=== PATIENT | female | born 1990 | race Caucasian/White ===

== ENCOUNTER 2018-09-03 15:32 | Inpatient (IN) | payer BC ==
[2018-09-03] MEDS ORDERED: Lidocaine 1% 50 ML MDV INJECT PRN (17:27)
[2018-09-03] MEDS ORDERED: Terbutaline 1 MG/ML SDV SUBCUT PRN (17:27)
[2018-09-03] MEDS ORDERED: Misoprostol 25 MCG (1/4 of 100 MCG) Tab VAG PRN (17:27)
[2018-09-03] MEDS ORDERED: Tranexamic Acid 1,000 MG in Sodium Chloride 0.9% 100 ML IV PRN (17:27)
[2018-09-03] MEDS ORDERED: Sodium Chloride 0.9% 10 ML Syringe FLUSH PRN (17:27)
[2018-09-03] MEDS ORDERED: Nalbuphine 10 MG/1 ML Vial IVPUSH PRN (17:27)
[2018-09-03] MEDS ORDERED: Methylergonovine 0.2 MG/1 ML Amp IM PRN (17:27)
[2018-09-03] MEDS ORDERED: Misoprostol 200 MCG Tab PO PRN (17:27)
[2018-09-03] MEDS ORDERED: Carboprost Tromethamine 250 MCG/1 ML Amp IM PRN (17:27)
[2018-09-03] MEDS ORDERED: Water For Irrigation,Sterile 1,000 ML Container IRR PRN (17:27)
[2018-09-03] MEDS ORDERED: Oxytocin/0.9 % Sodium Chloride 30 UNIT/500 ML BAG IV SCH (17:30)
[2018-09-03 18:42] LABS: CHLORIDE,CL 106 mmol/L (98-107); SODIUM,NA 138 mmol/L (136-145)
[2018-09-03] MEDS ORDERED: Labetalol 100 MG Tab PO ONE (20:06)
[2018-09-03] MEDS ORDERED: Labetalol 100 MG Tab PO PRN (20:06)
[2018-09-03] MEDS: Misoprostol 25 MCG (1/4 of 100 MCG) Tab VAG PRN (21:50)
[2018-09-04] MEDS: Misoprostol 25 MCG (1/4 of 100 MCG) Tab VAG PRN ×2 (01:51→06:13)
[2018-09-04] MEDS: Oxytocin/0.9 % Sodium Chloride 30 UNIT/500 ML BAG IV SCH (10:53)
[2018-09-04] MEDS: Lactated Ringers 1,000 ML IV SCH ×2 (10:53→18:09)
[2018-09-04] MEDS ORDERED: Labetalol 100 MG Tab PO SCH (21:00)
[2018-09-04] MEDS: Butorphanol 1 MG/ML SDV IVPUSH PRN (23:14)
[2018-09-05] MEDS: Butorphanol 1 MG/ML SDV IVPUSH PRN (00:43)
--- NOTE | 2018-09-05 03:01 | PCM.PREANE ---
Preanesthetic Assessment - Anesthesia/Transfusion/Family Hx Anesthesia History: Prior Anesthesia Without Reaction Family History of Anesthesia Reaction: No Transfusion History: No Prior Transfusion(s) - Review of Systems General: No Symptoms Pulmonary: No Symptoms Cardiovascular: No Symptoms Gastrointestinal: No Symptoms Neurological: No Symptoms Other: Reports: None - Physical Assessment Pulse: 80 Blood Pressure: 144/92 Vital Signs: Last Vital Signs Temp Pulse 80 09/04/18 22:51 Resp BP 144/92 H 09/04/18 22:51 Pulse Ox Height: 5 ft 6 in Weight: 92.986 kg ASA Class: 2 Mental Status: Alert & Oriented x3 Airway Class: Mallampati = 2 Dentition: Reports: Normal Dentition Thyro-Mental Finger Breadths: 3 Mouth Opening Finger Breadths: 3 ROM/Head Extension: Full Lungs: Clear to Auscultation, Normal Respiratory Effort Cardiovascular: Regular Rate, Regular Rhythm - Lab Values: Laboratory Last Values WBC 13.38 K/uL (4.0-11.0) H 09/03/18 17:41 RBC 3.64 M/uL (4.30-5.90) L 09/03/18 17:41 Hgb 11.4 g/dL (12.0-16.0) L 09/03/18 17:41 Hct 33.6 % (36.0-46.0) L 09/03/18 17:41 MCV 92.3 fL (80.0-98.0) 09/03/18 17:41 MCH 31.3 pg (27.0-32.0) 09/03/18 17:41 MCHC 33.9 g/dL (31.0-37.0) 09/03/18 17:41 RDW Std Deviation 47.6 fl (28.0-62.0) 09/03/18 17:41 RDW Coeff of Galilea 14 % (11.0-15.0) 09/03/18 17:41 Plt Count 184 K/uL (150-400) 09/03/18 17:41 MPV 9.60 fL (7.40-12.00) 09/03/18 17:41 Nucleated RBC % 0.0 /100WBC 09/03/18 17:41 Nucleated RBCs # 0 K/uL 09/03/18 17:41 Sodium 138 mmol/L (136-145) 09/03/18 17:41 Potassium 3.6 mmol/L (3.5-5.1) 09/03/18 17:41 Chloride 106 mmol/L (98-107) 09/03/18 17:41 Carbon Dioxide 20.8 mmol/L (21.0-32.0) L 09/03/18 17:41 BUN 8 mg/dL (7.0-18.0) 09/03/18 17:41 Creatinine 0.6 mg/dL (0.6-1.0) 09/03/18 17:41 Est Cr Clr Drug Dosing 133.01 mL/min 09/03/18 17:41 Estimated GFR (MDRD) > 60.0 ml/min 09/03/18 17:41 Glucose 94 mg/dL (74-106) 09/03/18 17:41 Uric Acid 3.3 mg/dL (2.6-7.2) 09/03/18 17:41 Calcium 8.9 mg/dL (8.5-10.1) 09/03/18 17:41 Total Bilirubin 0.2 mg/dL (0.2-1.0) 09/03/18 17:41 AST 19 IU/L (15-37) 09/03/18 17:41 ALT 11 IU/L (14-63) L 09/03/18 17:41 Alkaline Phosphatase 148 U/L (46-116) H 09/03/18 17:41 Total Protein 6.2 g/dL (6.4-8.2) L 09/03/18 17:41 Albumin 2.6 g/dL (3.4-5.0) L 09/03/18 17:41 Globulin 3.6 g/dL (2.6-4.0) 09/03/18 17:41 Albumin/Globulin Ratio 0.7 (0.9-1.6) L 09/03/18 17:41 Urine Color YELLOW 09/03/18 19:50 Urine Appearance CLEAR 09/03/18 19:50 Urine pH 7.0 (5.0-8.0) 09/03/18 19:50 Ur Specific [place] 1.010 (1.001-1.035) 09/03/18 19:50 Urine Protein NEGATIVE mg/dL (NEGATIVE) 09/03/18 19:50 Urine Glucose (UA) NEGATIVE mg/dL (NEGATIVE) 09/03/18 19:50 Urine Ketones NEGATIVE mg/dL (NEGATIVE) 09/03/18 19:50 Urine Occult Blood NEGATIVE (NEGATIVE) 09/03/18 19:50 Urine Nitrite NEGATIVE (NEGATIVE) 09/03/18 19:50 Urine Bilirubin NEGATIVE (NEGATIVE) 09/03/18 19:50 Urine Urobilinogen 0.2 EU/dL (<2.0) 09/03/18 19:50 Ur Leukocyte Esterase NEGATIVE (NEGATIVE) 09/03/18 19:50 Blood Type O POSITIVE 09/03/18 17:41 Antibody Screen NEGATIVE 09/03/18 17:41 - Allergies Allergies/Adverse Reactions: Allergies Allergy/AdvReac Type Severity Reaction Status Date / Time amoxicillin Allergy Hives Verified 09/03/18 17:25 Penicillins Allergy Hives Verified 09/03/18 17:25 - Acknowledgements Anesthesia Type Planned: Epidural Pt an Appropriate Candidate for the Planned Anesthesia: Yes Alternatives and Risks of Anesthesia Discussed w Pt/Guardian: Yes Pt/Guardian Understands and Agrees with Anesthesia Plan: Yes PreAnesthesia Questionnaire HEENT History: Reports: None Cardiovascular History: Reports: None Respiratory History: Reports: None Gastrointestinal History: Reports: GERD Genitourinary History: Reports: None 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 Para: 0 LMP (Approximate): Musculoskeletal History: Reports: None Neurological History: Reports: None Psychiatric History: Reports: None Endocrine/Metabolic History: Reports: Obesity/BMI 30+ Hematologic History: Reports: None Immunologic History: Reports: None Oncologic (Cancer) History: Reports: None Dermatologic History: Reports: None - Infectious Disease History Infectious Disease History: Reports: None - Past Surgical History HEENT Surgical History: Reports: Other (See Below) Other HEENT Surgeries/Procedures: wisdom teeth - SUBSTANCE USE Smoking Status *Q: Never Smoker Tobacco Use Within Last Twelve Months: No Second Hand Smoke Exposure: No Recreational Drug Use History: No - CURRENT (IN HOUSE) MEDS Current Meds: Current Medications Butorphanol Tartrate (Stadol) 1 mg IVPUSH ASDIRECTED PRN PRN Reason: Pain Last Admin: 09/05/18 00:43 Dose: 1 mg Carboprost Tromethamine (Hemabate Ds) 250 mcg IM ASDIRECTED PRN PRN Reason: Post Hemorrhage Lactated Ringer's (Ringers, Lactated) 1,000 mls @ 150 mls/hr IV ASDIRECTED VIVEK Last Admin: 09/04/18 18:09 Dose: 150 mls/hr Oxytocin/Sodium Chloride (Oxytocin 30 Unit/500 Ml-Ns) 30 unit in 500 mls @ 999 mls/hr IV TITRATE VIVEK Oxytocin/Sodium Chloride (Oxytocin 30 Unit/500 Ml-Ns) 30 unit in 500 mls @ 2 mls/hr IV TITRATE VIVEK; Protocol Last Titration: 09/05/18 01:15 Dose: 30 munits/min, 30 mls/hr Tranexamic Acid 1,000 mg/ (Sodium Chloride) 110 mls @ 660 mls/hr IV ONETIME PRN PRN Reason: Bleeding Labetalol HCl (Normodyne) 200 mg PO BID [facility] Last Admin: 09/04/18 22:51 Dose: 200 mg Lidocaine HCl (Xylocaine 1%) 50 ml INJECT ONETIME PRN PRN Reason: Laceration repair Methylergonovine Maleate (Methergine) 0.2 mg IM ASDIRECTED PRN PRN Reason: Post Hemorrhage Misoprostol (Cytotec) 200 mcg PO ONETIME PRN PRN Reason: Post Hemorrhage Misoprostol (Cytotec) 25 mcg VAG ONETIME PRN PRN Reason: Cervical Ripening Last Admin: 09/03/18 17:52 Dose: 25 mcg Misoprostol (Cytotec) 25 mcg VAG Q4H PRN PRN Reason: Cervical Ripening Last Admin: 09/04/18 06:13 Dose: 25 mcg Nalbuphine HCl (Nubain) 10 mg IVPUSH ASDIRECTED PRN PRN Reason: Pain (severe 7-10) Sodium Chloride (Saline Flush) 10 ml FLUSH ASDIRECTED PRN PRN Reason: Keep Vein Open Last Admin: 09/03/18 17:41 Dose: 10 ml Sterile Water (Sterile Water For Irrigation) 1,000 ml IRR ASDIRECTED PRN PRN Reason: delivery Terbutaline Sulfate (Brethine) 0.25 mg SUBCUT ASDIRECTED PRN PRN Reason: Tacysystole Discontinued Medications Labetalol HCl (Normodyne) 200 mg PO ONETIME ONE Stop: 09/03/18 20:07 Last Admin: 09/03/18 20:21 Dose: 200 mg Labetalol HCl (Normodyne) 200 mg PO Q6H PRN PRN Reason: Other Last Admin: 09/04/18 10:24 Dose: 200 mg
[2018-09-05] MEDS ORDERED: Lidocaine HCl/EPINEPHrine 5 ML IJ ONE (03:06)
[2018-09-05] MEDS ORDERED: Labetalol 100 MG Tab ONE (11:15)
[2018-09-05] MEDS: Labetalol 100 MG Tab PO SCH ×2 (11:19→22:35)
[2018-09-05] MEDS: Oxytocin/0.9 % Sodium Chloride 30 UNIT/500 ML BAG IV SCH (11:20)
[2018-09-05] MEDS ORDERED: Ondansetron 4 MG/2 ML SDV IVPUSH PRN (12:09)
[2018-09-05] MEDS: Lactated Ringers 1,000 ML IV SCH (13:26)
[2018-09-05] MEDS ORDERED: Aluminum Hydroxide/Magnesium Hydroxide/Simethicone Susp 30 ML Cup PO PRN (16:17)
[2018-09-05] MEDS ORDERED: Bisacodyl 10 MG Supp RECTAL PRN (16:17)
[2018-09-05] MEDS ORDERED: Benzocaine/Menthol 20%-0.5% Spray 78 GM Cannister TOP PRN (16:17)
[2018-09-05] MEDS ORDERED: Lanolin 100% Cream 7 GM Tube TOP PRN (16:17)
[2018-09-05] MEDS ORDERED: oxyCODONE 5 MG Tab PO PRN (16:17)
[2018-09-05] MEDS ORDERED: Docusate Sodium 100 MG Cap PO PRN (16:17)
[2018-09-05] MEDS ORDERED: Ibuprofen 400 MG Tab PO PRN (16:17)
[2018-09-05] MEDS ORDERED: Acetaminophen 500 MG Tab PO PRN (16:17)
[2018-09-05] MEDS ORDERED: Sodium Chloride 0.9% 100 ML ONE (17:01)
[2018-09-05] MEDS: Acetaminophen 500 MG Tab PO PRN (18:16)
[2018-09-05] MEDS: Witch Hazel Medicated Pads 40/Jar TOP PRN (18:19)
--- NOTE | 2018-09-05 19:50 | OR ---
SURGEON: Judi Sweet M.D. DATE OF PROCEDURE: 09/05/2018 PREOPERATIVE DIAGNOSES: 1. 39 and 4 weeks intrauterine . 2. Gestational hypertension. POSTOPERATIVE DIAGNOSES: 1. 39 and 4 weeks intrauterine . 2. Gestational hypertension. 3. Uterine atony and hemorrhage. PROCEDURES: 1. Spontaneous vaginal delivery. 2. Third-degree midline laceration, repaired. ANESTHESIA: Epidural. ESTIMATED BLOOD LOSS: 800 mL. FINDINGS: Viable female, scores 8 at 1 minute, 9 at 5 minutes. Weight of 4000 g. Spontaneous delivery, intact placenta, 3-vessel cord. Uterine atony status post Pitocin, Hemabate 250 mcg x1 and tranexamic acid 1 g. DISPOSITION: to nursery, mom in LDRP, stable. PROCEDURE IN DETAIL: Anel is a 28-year-old primigravida at 39 and 4 weeks gestational age who is being induced for gestational hypertension since 09/03/2018. I assumed care of the patient on the morning of 09/05/2018, shortly after 8:00 a.m. At that time, she was found to be 5 cm, 100% effaced, 0 station. heart tones 140s with variability on Pitocin and comfortable with an epidural. Did not appear her IUPC was reading correctly and despite flushing it and trying to reposition, it still was not reading correctly. Therefore, this was removed and another one replaced. This one did seem to be monitoring more adequately. The patient made slow cervical change through the morning hours. However, shortly after noon, began making more rapid cervical change and the heart tones remained category 1. Shortly before 1:00 p.m., the patient was found to be complete, 100% effaced, and was at +1 station. She began pushing efforts shortly before 2:00 p.m., did push adequately. Her blood pressures remained in the 130s over 70s at this time interval. The patient pushed to a +3 station. I was called for delivery. Upon my arrival, the patient was placed in modified dorsal lithotomy position and was prepped and draped in the usual aseptic manner. Continued with pushing efforts and was able to deliver the infant's head atraumatically, spontaneously, followed by anterior shoulder, posterior shoulder, and remainder of body. 's oropharynx and nares bulb suctioned, cord was clamped x2 and cut. Infant was handed off to her mother with attending nursing staff at side. Cord arterial, cord venous, cord blood obtained. Light pressure was applied while the placenta was delivered spontaneously intact. Vigorous fundal uterine massage was then applied while 30 U Pitocin was delivered in 500 mL of IV fluid. However, the uterus remained boggy despite these efforts, therefore dosed with Hemabate 250 mcg IM. The uterus became more firm thereafter, however, was still with heavier bleeding. Therefore, a 2nd IV site was started and the patient received 1 g of tranexamic acid. Uterus became more firm thereafter and bleeding slowed significantly. At this point, I was able to inspect the perineum, vaginal sidewalls, and cervix. There was found to be a third-degree midline laceration present, it was repaired using 3-0 Vicryl, reapproximated the capsule of levator muscle with [id number] sutures x3, followed by repairing remainder of the second-degree laceration in usual fashion using 3-0 Vicryl. Uterus is remaining much more firm at this juncture. The hemostasis is evident. Vital signs remained stable, except the patient is mildly tachycardic in the 120s. Therefore, we will continue to monitor her closely. She is denying any dizziness or lightheadedness. We will also continue to monitor her blood pressure closely in the period. Sponge and needle count was correct. The patient lying in LDRP, to nursery. PHIL / TITA /[id number] YOBANI
--- NOTE | 2018-09-05 22:17 | PCM48HPAN ---
Post Anesthesia Note - EVALUATION WITHIN 48HRS OF ANESTHETIC Vital Signs in Normal Range: Yes Patient Participated in Evaluation: Yes Respiratory Function Stable: Yes Airway Patent: Yes Cardiovascular Function Stable: Yes Hydration Status Stable: Yes Pain Control Satisfactory: Yes Nausea and Vomiting Control Satisfactory: Yes Mental Status Recovered: Yes Resp Rate: 18
[2018-09-06] MEDS: Ibuprofen 800 MG Tab PO PRN ×2 (05:44→16:23)
--- NOTE | 2018-09-06 08:59 | PCM.PNPP ---
- General Info Date of Service: 09/06/18 Functional Status: Reports: Pain Controlled, Tolerating Diet, Ambulating - Review of Systems General: Denies: Fever, Fatigue, Chills HEENT: Denies: Headaches Pulmonary: Denies: Shortness of Breath, Pleuritic Chest Pain Cardiovascular: Denies: Chest Pain, Palpitations, Dyspnea on Exertion Gastrointestinal: Denies: Abdominal Pain Genitourinary: Denies: Dysuria, Burning, Hematuria, Retention Psychiatric: Denies: Confusion, Depression, Anxiety - General Info Date of Service: 09/06/18 - Patient Data Vital Signs - Most Recent: Last Vital Signs Temp 37.0 C 09/06/18 05:30 Pulse 100 09/06/18 05:30 Resp 18 09/06/18 05:30 BP 126/83 09/06/18 05:30 Pulse Ox 100 09/06/18 05:30 Weight - Most Recent: 205 lb I&O - Last 24 Hours: Intake & Output 09/05/18 09/06/18 09/06/18 22:59 06:59 14:59 Output Total 400 Balance -400 Lab Results - Last 24 Hours: Laboratory Results - last 24 hr 09/05/18 09/06/18 Range/Units 15:32 06:15 WBC 28.57 H (4.0-11.0) K/uL RBC 2.64 L (4.30-5.90) M/uL Hgb 8.2 L (12.0-16.0) g/dL Hct 24.4 L (36.0-46.0) % MCV 92.4 (80.0-98.0) fL MCH 31.1 (27.0-32.0) pg MCHC 33.6 (31.0-37.0) g/dL RDW Std Deviation 47.7 (28.0-62.0) fl RDW Coeff of Galilea 14 (11.0-15.0) % Plt Count 161 (150-400) K/uL MPV 8.90 (7.40-12.00) fL Nucleated RBC % 0.0 /100WBC Nucleated RBCs # 0 K/uL Cord ABG pH 7.347 (7.18-7.38) Cord ABG Base Excess -7 (-10--2) Cord VBG pH 7.355 (7.25-7.45) Cord VBG Base Excess -6 (-10--2) Med Orders - Current: Current Medications Acetaminophen (Tylenol Extra Strength) 500 mg PO Q4H PRN PRN Reason: Pain Acetaminophen (Tylenol Extra Strength) 1,000 mg PO Q4H PRN PRN Reason: Pain Last Admin: 09/05/18 18:16 Dose: 1,000 mg Al Hydroxide/Mg Hydroxide (Mag-Al Plus) 30 ml PO Q8H PRN PRN Reason: Heartburn Benzocaine/Menthol (Dermoplast Pain Relief 20%-0.5% [place]) 78 gm TOP ASDIRECTED PRN PRN Reason: Perineal Comfort Measure Last Admin: 09/05/18 18:19 Dose: 78 gm Bisacodyl (Dulcolax) 10 mg RECTAL ONETIME PRN PRN Reason: Constipation Carboprost Tromethamine (Hemabate Ds) 250 mcg IM ASDIRECTED PRN PRN Reason: Post Hemorrhage Last Admin: 09/05/18 15:44 Dose: 250 mcg Docusate Sodium (Colace) 100 mg PO BID PRN PRN Reason: Constipation Emollient Ointment (Lansinoh Hpa) 0 gm TOP ASDIRECTED PRN PRN Reason: Sore Nipples Lactated Ringer's (Ringers, Lactated) 1,000 mls @ 150 mls/hr IV ASDIRECTED VIVEK Last Admin: 09/05/18 13:26 Dose: 150 mls/hr Oxytocin/Sodium Chloride (Oxytocin 30 Unit/500 Ml-Ns) 30 unit in 500 mls @ 999 mls/hr IV TITRATE VIVEK Oxytocin/Sodium Chloride (Oxytocin 30 Unit/500 Ml-Ns) 30 unit in 500 mls @ 2 mls/hr IV TITRATE VIVEK; Protocol Last Titration: 09/05/18 12:49 Dose: 40 munits/min, 40 mls/hr Tranexamic Acid 1,000 mg/ (Sodium Chloride) 110 mls @ 660 mls/hr IV ONETIME PRN PRN Reason: Bleeding Last Admin: 09/05/18 15:56 Dose: 660 mls/hr Ibuprofen (Motrin) 400 mg PO Q4H PRN PRN Reason: Pain Ibuprofen (Motrin) 800 mg PO Q6H PRN PRN Reason: Pain Last Admin: 09/06/18 05:44 Dose: 800 mg Labetalol HCl (Normodyne) 200 mg PO Q12H VIVEK Last Admin: 09/05/18 22:35 Dose: Not Given Lidocaine HCl (Xylocaine 1%) 50 ml INJECT ONETIME PRN PRN Reason: Laceration repair Ondansetron HCl (Zofran) 4 mg IVPUSH Q4H PRN PRN Reason: Nausea Oxycodone HCl (Oxycodone) 5 mg PO Q2H PRN PRN Reason: Pain Sodium Chloride (Saline Flush) 10 ml FLUSH ASDIRECTED PRN PRN Reason: Keep Vein Open Last Admin: 09/03/18 17:41 Dose: 10 ml Sterile Water (Sterile Water For Irrigation) 1,000 ml IRR ASDIRECTED PRN PRN Reason: delivery Last Admin: 09/05/18 15:32 Dose: 1,000 ml Witch Leona (Tucks) 1 pad TOP ASDIRECTED PRN PRN Reason: comfort care Last Admin: 09/05/18 18:19 Dose: 1 pad Discontinued Medications Butorphanol Tartrate (Stadol) 1 mg IVPUSH ASDIRECTED PRN PRN Reason: Pain Last Admin: 09/05/18 00:43 Dose: 1 mg Fentanyl/Bupivacaine HCl ([id number] 2 Mcg/Ml-0.125%) Confirm Administered Dose 100 mls @ as directed .ROUTE .STK-MED ONE Stop: 09/05/18 03:06 Last Admin: 09/05/18 03:47 Dose: Not Given Fentanyl/Bupivacaine HCl ([id number]-Xvgtz-Rs 2 Mcg/Ml-0.125%) Confirm Administered Dose 100 mls @ as directed .ROUTE .STK-MED ONE Stop: 09/05/18 12:35 Last Admin: 09/06/18 07:33 Dose: Not Given Sodium Chloride (Normal Saline) Confirm Administered Dose 100 mls @ as directed .ROUTE .STK-MED ONE Stop: 09/05/18 17:02 Last Admin: 09/06/18 07:33 Dose: Not Given Labetalol HCl (Normodyne) 200 mg PO ONETIME ONE Stop: 09/03/18 20:07 Last Admin: 09/03/18 20:21 Dose: 200 mg Labetalol HCl (Normodyne) 200 mg PO Q6H PRN PRN Reason: Other Last Admin: 09/04/18 10:24 Dose: 200 mg Labetalol HCl (Normodyne) 200 mg PO BID VIVEK Last Admin: 09/04/18 22:51 Dose: 200 mg Labetalol HCl (Normodyne) Confirm Administered Dose 200 mg .ROUTE .STK-MED ONE Stop: 09/05/18 11:16 Last Admin: 09/06/18 07:33 Dose: Not Given Lidocaine/Epinephrine (Lidocaine 1.5%-Epi 1:200,000) Confirm Administered Dose 5 ml IJ .STK-MED ONE Stop: 09/05/18 03:07 Last Admin: 09/05/18 03:47 Dose: Not Given Methylergonovine Maleate (Methergine) 0.2 mg IM ASDIRECTED PRN PRN Reason: Post Hemorrhage Misoprostol (Cytotec) 200 mcg PO ONETIME PRN PRN Reason: Post Hemorrhage Misoprostol (Cytotec) 25 mcg VAG ONETIME PRN PRN Reason: Cervical Ripening Last Admin: 09/03/18 17:52 Dose: 25 mcg Misoprostol (Cytotec) 25 mcg VAG Q4H PRN PRN Reason: Cervical Ripening Last Admin: 09/04/18 06:13 Dose: 25 mcg Nalbuphine HCl (Nubain) 10 mg IVPUSH ASDIRECTED PRN PRN Reason: Pain (severe 7-10) Terbutaline Sulfate (Brethine) 0.25 mg SUBCUT ASDIRECTED PRN PRN Reason: Tacysystole Tranexamic Acid (Cyklokapron) Confirm Administered Dose 1,000 mg .ROUTE .STK- MED ONE Stop: 09/05/18 17:01 Last Admin: 09/06/18 07:33 Dose: Not Given - Interaction Infant Disposition, : [place] to Nursery Infant Feeding: Breastfed Infant; Nursed Well, Continues to Breastfeed Support Person: - Recovery Exam Fundal Tone: Firm Fundal Level: 1 Fingerbreadths Below Umbilicus Fundal Placement: Midline Lochia Amount: Scant Lochia Color: Rubra/Red Perineum Description: Intact, Minimal Bruising/Swelling Episiotomy/Laceration: Approximated Bladder Status: Voiding - Exam General: Alert, Oriented HEENT: Pupils Equal Lungs: Clear to Auscultation, Normal Respiratory Effort Cardiovascular: Regular Rate, Regular Rhythm GI/Abdominal Exam: Normal Bowel Sounds, No Mass Extremities: Non-Tender, Pedal Edema Skin: Warm Psy/Mental Status: Alert, Normal Affect, Normal Mood - Problem List & Annotations (1) Vaginal delivery SNOMED Code(s): 711936194 Code(s): O80 - ENCOUNTER FOR FULL-TERM UNCOMPLICATED DELIVERY Status: Acute Current Visit: Yes (2) [place] of uterus with hemorrhage Status: Acute Current Visit: Yes (3) Gestational hypertension SNOMED Code(s): 184504084, 505773401 Code(s): O13.9 - GESTATIONAL HTN W/O SIGNIFICANT PROTEINURIA, UNSP TRIMESTER Status: Acute Current Visit: Yes Qualifiers: Trimester: third trimester Qualified Code(s): O13.3 - Gestational [ -induced] hypertension without significant proteinuria, third trimester - Problem List Review Problem List Initiated/Reviewed/Updated: Yes - My Orders Last 24 Hours: My Active Orders 09/05/18 10:30 Labetalol [Normodyne] 200 mg PO Q12H 09/05/18 12:09 Ondansetron [Zofran] 4 mg IVPUSH Q4H PRN - Assessment Assessment:: PPD#1 IOL for GHTN, s/p with PPH secondary to uterine atony -Acute blood loss anemia, hgb 8.2g/dl this am- patient is asymptomatic -GHTN: BP WNL - Plan Plan:: Continue current care. Monitor for S/S of anemia, start BID Ferrous sulphate BP is 120-130/70's, will hold labetolol this am and continue to watch Will keep in today and aim for discharge tomorrow
[2018-09-06] MEDS: Ferrous Sulfate 325 MG Tab PO SCH ×2 (10:13→17:40)
[2018-09-06] MEDS: Acetaminophen 500 MG Tab PO PRN (10:18)
[2018-09-06] MEDS: Labetalol 100 MG Tab PO SCH ×2 (12:49→22:30)
[2018-09-07] MEDS: Witch Hazel Medicated Pads 40/Jar TOP PRN (04:06)
[2018-09-07] MEDS: Ibuprofen 800 MG Tab PO PRN (04:06)
--- NOTE | 2018-09-07 08:01 | PCM.PNPP ---
<Marli Quintana - Last Filed: 09/07/18 07:58> - General Info Date of Service: 09/07/18 Functional Status: Reports: Pain Controlled, Tolerating Diet, Ambulating, Urinating - Review of Systems General: Denies: Fever, Weakness, Fatigue Pulmonary: Denies: Shortness of Breath, Pleuritic Chest Pain, Cough Cardiovascular: Denies: Chest Pain, Palpitations, Dyspnea on Exertion Gastrointestinal: Denies: Abdominal Pain Genitourinary: Denies: Dysuria - General Info Date of Service: 09/07/18 - Patient Data Vital Signs - Most Recent: Last Vital Signs Temp 36.6 C 09/07/18 07:18 Pulse 92 09/07/18 07:18 Resp 18 09/07/18 07:18 BP 126/75 09/07/18 07:18 Pulse Ox 97 09/07/18 07:18 Weight - Most Recent: 205 lb Med Orders - Current: Current Medications Acetaminophen (Tylenol Extra Strength) 500 mg PO Q4H PRN PRN Reason: Pain Acetaminophen (Tylenol Extra Strength) 1,000 mg PO Q4H PRN PRN Reason: Pain Last Admin: 09/06/18 10:18 Dose: 1,000 mg Al Hydroxide/Mg Hydroxide (Mag-Al Plus) 30 ml PO Q8H PRN PRN Reason: Heartburn Benzocaine/Menthol (Dermoplast Pain Relief 20%-0.5% [place]) 78 gm TOP ASDIRECTED PRN PRN Reason: Perineal Comfort Measure Last Admin: 09/05/18 18:19 Dose: 78 gm Bisacodyl (Dulcolax) 10 mg RECTAL ONETIME PRN PRN Reason: Constipation Carboprost Tromethamine (Hemabate Ds) 250 mcg IM ASDIRECTED PRN PRN Reason: Post Hemorrhage Last Admin: 09/05/18 15:44 Dose: 250 mcg Docusate Sodium (Colace) 100 mg PO BID PRN PRN Reason: Constipation Emollient Ointment (Lansinoh Hpa) 0 gm TOP ASDIRECTED PRN PRN Reason: Sore Nipples Ferrous Sulfate (Ferrous Sulfate) 325 mg PO BIDWVALS [facility] Last Admin: 09/06/18 17:40 Dose: 325 mg Lactated Ringer's (Ringers, Lactated) 1,000 mls @ 150 mls/hr IV ASDIRECTED [facility] Last Admin: 09/05/18 13:26 Dose: 150 mls/hr Oxytocin/Sodium Chloride (Oxytocin 30 Unit/500 Ml-Ns) 30 unit in 500 mls @ 999 mls/hr IV TITRATE VIVEK Oxytocin/Sodium Chloride (Oxytocin 30 Unit/500 Ml-Ns) 30 unit in 500 mls @ 2 mls/hr IV TITRATE VIVEK; Protocol Last Titration: 09/05/18 12:49 Dose: 40 munits/min, 40 mls/hr Tranexamic Acid 1,000 mg/ (Sodium Chloride) 110 mls @ 660 mls/hr IV ONETIME PRN PRN Reason: Bleeding Last Admin: 09/05/18 15:56 Dose: 660 mls/hr Ibuprofen (Motrin) 400 mg PO Q4H PRN PRN Reason: Pain Ibuprofen (Motrin) 800 mg PO Q6H PRN PRN Reason: Pain Last Admin: 09/07/18 04:06 Dose: 800 mg Labetalol HCl (Normodyne) 200 mg PO Q12H VIVEK Last Admin: 09/06/18 22:30 Dose: Not Given Lidocaine HCl (Xylocaine 1%) 50 ml INJECT ONETIME PRN PRN Reason: Laceration repair Ondansetron HCl (Zofran) 4 mg IVPUSH Q4H PRN PRN Reason: Nausea Oxycodone HCl (Oxycodone) 5 mg PO Q2H PRN PRN Reason: Pain Sodium Chloride (Saline Flush) 10 ml FLUSH ASDIRECTED PRN PRN Reason: Keep Vein Open Last Admin: 09/03/18 17:41 Dose: 10 ml Sterile Water (Sterile Water For Irrigation) 1,000 ml IRR ASDIRECTED PRN PRN Reason: delivery Last Admin: 09/05/18 15:32 Dose: 1,000 ml Witch Leona (Tucks) 1 pad TOP ASDIRECTED PRN PRN Reason: comfort care Last Admin: 09/07/18 04:06 Dose: 1 pad Discontinued Medications Butorphanol Tartrate (Stadol) 1 mg IVPUSH ASDIRECTED PRN PRN Reason: Pain Last Admin: 09/05/18 00:43 Dose: 1 mg Fentanyl/Bupivacaine HCl (Tumwivdt-Dqsku-Wj 2 Mcg/Ml-0.125%) Confirm Administered Dose 100 mls @ as directed .ROUTE .[facility]-MED ONE Stop: 09/05/18 03:06 Last Admin: 09/05/18 03:47 Dose: Not Given Fentanyl/Bupivacaine HCl (Cefdnwly-Vsuph-Lb 2 Mcg/Ml-0.125%) Confirm Administered Dose 100 mls @ as directed .ROUTE .STK-MED ONE Stop: 09/05/18 12:35 Last Admin: 09/06/18 07:33 Dose: Not Given Sodium Chloride (Normal Saline) Confirm Administered Dose 100 mls @ as directed .ROUTE .STK-MED ONE Stop: 09/05/18 17:02 Last Admin: 09/06/18 07:33 Dose: Not Given Labetalol HCl (Normodyne) 200 mg PO ONETIME ONE Stop: 09/03/18 20:07 Last Admin: 09/03/18 20:21 Dose: 200 mg Labetalol HCl (Normodyne) 200 mg PO Q6H PRN PRN Reason: Other Last Admin: 09/04/18 10:24 Dose: 200 mg Labetalol HCl (Normodyne) 200 mg PO BID VIVEK Last Admin: 09/04/18 22:51 Dose: 200 mg Labetalol HCl (Normodyne) Confirm Administered Dose 200 mg .ROUTE .STK-MED ONE Stop: 09/05/18 11:16 Last Admin: 09/06/18 07:33 Dose: Not Given Lidocaine/Epinephrine (Lidocaine 1.5%-Epi 1:200,000) Confirm Administered Dose 5 ml IJ .STK-MED ONE Stop: 09/05/18 03:07 Last Admin: 09/05/18 03:47 Dose: Not Given Methylergonovine Maleate (Methergine) 0.2 mg IM ASDIRECTED PRN PRN Reason: Post Hemorrhage Misoprostol (Cytotec) 200 mcg PO ONETIME PRN PRN Reason: Post Hemorrhage Misoprostol (Cytotec) 25 mcg VAG ONETIME PRN PRN Reason: Cervical Ripening Last Admin: 09/03/18 17:52 Dose: 25 mcg Misoprostol (Cytotec) 25 mcg VAG Q4H PRN PRN Reason: Cervical Ripening Last Admin: 09/04/18 06:13 Dose: 25 mcg Nalbuphine HCl (Nubain) 10 mg IVPUSH ASDIRECTED PRN PRN Reason: Pain (severe 7-10) Terbutaline Sulfate (Brethine) 0.25 mg SUBCUT ASDIRECTED PRN PRN Reason: Tacysystole Tranexamic Acid (Cyklokapron) Confirm Administered Dose 1,000 mg .ROUTE .STK- MED ONE Stop: 09/05/18 17:01 Last Admin: 09/06/18 07:33 Dose: Not Given - Interaction Infant Disposition, : in Room with Family Infant Interaction: Holding Infant Feeding: Breastfed Infant; Nursed Well, Continues to Breastfeed Support Person: - Recovery Exam Fundal Tone: Firm Fundal Level: 1 Fingerbreadths Below Umbilicus Fundal Placement: Midline Lochia Amount: Scant Lochia Color: Rubra/Red Perineum Description: Intact, Minimal Bruising/Swelling Episiotomy/Laceration: Approximated Bladder Status: Voiding - Exam General: Alert, Oriented Neck: Supple Lungs: Clear to Auscultation, Normal Respiratory Effort Cardiovascular: Regular Rate, Regular Rhythm GI/Abdominal Exam: Normal Bowel Sounds, Soft, Non-Tender, No Distention, No Mass Extremities: Normal Inspection, Non-Tender, Normal Capillary Refill, Pedal Edema (trace) Skin: Warm, Dry, Intact - Problem List & Annotations (1) Vaginal delivery SNOMED Code(s): 400854668 Code(s): O80 - ENCOUNTER FOR FULL-TERM UNCOMPLICATED DELIVERY Status: Acute Current Visit: Yes - Problem List Review Problem List Initiated/Reviewed/Updated: Yes - Assessment Assessment:: PPD#2 IOL for GHTN, s/p with PPH secondary to uterine atony -Acute blood loss anemia, hgb 8.2g/dl this am- patient is asymptomatic. Started on iron supplement -GHTN: BP WNL , BP check in 1 week - Plan Plan:: Discharge home today. Pelvic rest for 6 weeks. Continue PNV while breast feeding. Can use OTC ibuprofen/tylenol as needed for pain. Instructed patient to call if she develops fever greater than 101 or bleeding through a large pad an hour. Continue Ferrous sulphate BID for anemia. F/U with [facility] in 6 weeks. <AdJuana simmons - Last Filed: 09/07/18 09:01> - Patient Data Vital Signs - Most Recent: Last Vital Signs Temp 36.6 C 09/07/18 07:18 Pulse 92 02/07/19 07:18 Resp 18 09/07/18 07:18 BP 126/75 09/07/18 07:18 Pulse Ox 97 09/07/18 07:18 Med Orders - Current: Current Medications Acetaminophen (Tylenol Extra Strength) 500 mg PO Q4H PRN PRN Reason: Pain Acetaminophen (Tylenol Extra Strength) 1,000 mg PO Q4H PRN PRN Reason: Pain Last Admin: 09/06/18 10:18 Dose: 1,000 mg Al Hydroxide/Mg Hydroxide (Mag-Al Plus) 30 ml PO Q8H PRN PRN Reason: Heartburn Benzocaine/Menthol (Dermoplast Pain Relief 20%-0.5% [place]) 78 gm TOP ASDIRECTED PRN PRN Reason: Perineal Comfort Measure Last Admin: 09/05/18 18:19 Dose: 78 gm Bisacodyl (Dulcolax) 10 mg RECTAL ONETIME PRN PRN Reason: Constipation Carboprost Tromethamine (Hemabate Ds) 250 mcg IM ASDIRECTED PRN PRN Reason: Post Hemorrhage Last Admin: 09/05/18 15:44 Dose: 250 mcg Docusate Sodium (Colace) 100 mg PO BID PRN PRN Reason: Constipation Emollient Ointment (Lansinoh Hpa) 0 gm TOP ASDIRECTED PRN PRN Reason: Sore Nipples Ferrous Sulfate (Ferrous Sulfate) 325 mg PO BIDMEALS VIVEK Last Admin: 09/07/18 08:04 Dose: 325 mg Lactated Ringer's (Ringers, Lactated) 1,000 mls @ 150 mls/hr IV ASDIRECTED VIVEK Last Admin: 09/05/18 13:26 Dose: 150 mls/hr Oxytocin/Sodium Chloride (Oxytocin 30 Unit/500 Ml-Ns) 30 unit in 500 mls @ 999 mls/hr IV TITRATE VIVEK Oxytocin/Sodium Chloride (Oxytocin 30 Unit/500 Ml-Ns) 30 unit in 500 mls @ 2 mls/hr IV TITRATE VIVEK; Protocol Last Titration: 09/05/18 12:49 Dose: 40 munits/min, 40 mls/hr Tranexamic Acid 1,000 mg/ (Sodium Chloride) 110 mls @ 660 mls/hr IV ONETIME PRN PRN Reason: Bleeding Last Admin: 09/05/18 15:56 Dose: 660 mls/hr Ibuprofen (Motrin) 400 mg PO Q4H PRN PRN Reason: Pain Ibuprofen (Motrin) 800 mg PO Q6H PRN PRN Reason: Pain Last Admin: 09/07/18 04:06 Dose: 800 mg Labetalol HCl (Normodyne) 200 mg PO Q12H VIVEK Last Admin: 09/06/18 22:30 Dose: Not Given Lidocaine HCl (Xylocaine 1%) 50 ml INJECT ONETIME PRN PRN Reason: Laceration repair Ondansetron HCl (Zofran) 4 mg IVPUSH Q4H PRN PRN Reason: Nausea Oxycodone HCl (Oxycodone) 5 mg PO Q2H PRN PRN Reason: Pain Sodium Chloride (Saline Flush) 10 ml FLUSH ASDIRECTED PRN PRN Reason: Keep Vein Open Last Admin: 09/03/18 17:41 Dose: 10 ml Sterile Water (Sterile Water For Irrigation) 1,000 ml IRR ASDIRECTED PRN PRN Reason: delivery Last Admin: 09/05/18 15:32 Dose: 1,000 ml Witch Leona (Tucks) 1 pad TOP ASDIRECTED PRN PRN Reason: comfort care Last Admin: 09/07/18 04:06 Dose: 1 pad Discontinued Medications Butorphanol Tartrate (Stadol) 1 mg IVPUSH ASDIRECTED PRN PRN Reason: Pain Last Admin: 09/05/18 00:43 Dose: 1 mg Fentanyl/Bupivacaine HCl (Byapdjwh-Tdwmn-Na 2 Mcg/Ml-0.125%) Confirm Administered Dose 100 mls @ as directed .ROUTE .STK-MED ONE Stop: 09/05/18 03:06 Last Admin: 09/05/18 03:47 Dose: Not Given Fentanyl/Bupivacaine HCl (Ylmuzmzt-Nghqp-Yi 2 Mcg/Ml-0.125%) Confirm Administered Dose 100 mls @ as directed .ROUTE .STK-MED ONE Stop: 09/05/18 12:35 Last Admin: 09/06/18 07:33 Dose: Not Given Sodium Chloride (Normal Saline) Confirm Administered Dose 100 mls @ as directed .ROUTE .STK-MED ONE Stop: 09/05/18 17:02 Last Admin: 09/06/18 07:33 Dose: Not Given Labetalol HCl (Normodyne) 200 mg PO ONETIME ONE Stop: 09/03/18 20:07 Last Admin: 09/03/18 20:21 Dose: 200 mg Labetalol HCl (Normodyne) 200 mg PO Q6H PRN PRN Reason: Other Last Admin: 09/04/18 10:24 Dose: 200 mg Labetalol HCl (Normodyne) 200 mg PO BID VIVEK Last Admin: 09/04/18 22:51 Dose: 200 mg Labetalol HCl (Normodyne) Confirm Administered Dose 200 mg .ROUTE .STK-MED ONE Stop: 09/05/18 11:16 Last Admin: 09/06/18 07:33 Dose: Not Given Lidocaine/Epinephrine (Lidocaine 1.5%-Epi 1:200,000) Confirm Administered Dose 5 ml IJ .STK-MED ONE Stop: 09/05/18 03:07 Last Admin: 09/05/18 03:47 Dose: Not Given Methylergonovine Maleate (Methergine) 0.2 mg IM ASDIRECTED PRN PRN Reason: Post Hemorrhage Misoprostol (Cytotec) 200 mcg PO ONETIME PRN PRN Reason: Post Hemorrhage Misoprostol (Cytotec) 25 mcg VAG ONETIME PRN PRN Reason: Cervical Ripening Last Admin: 09/03/18 17:52 Dose: 25 mcg Misoprostol (Cytotec) 25 mcg VAG Q4H PRN PRN Reason: Cervical Ripening Last Admin: 09/04/18 06:13 Dose: 25 mcg Nalbuphine HCl (Nubain) 10 mg IVPUSH ASDIRECTED PRN PRN Reason: Pain (severe 7-10) Terbutaline Sulfate (Brethine) 0.25 mg SUBCUT ASDIRECTED PRN PRN Reason: Tacysystole Tranexamic Acid (Cyklokapron) Confirm Administered Dose 1,000 mg .ROUTE .STK- MED ONE Stop: 09/05/18 17:01 Last Admin: 09/06/18 07:33 Dose: Not Given - Problem List & Annotations (1) Vaginal delivery SNOMED Code(s): 636171569 Code(s): O80 - ENCOUNTER FOR FULL-TERM UNCOMPLICATED DELIVERY Status: Acute Current Visit: Yes (2) [place] of uterus with hemorrhage Status: Acute Current Visit: Yes (3) Gestational hypertension SNOMED Code(s): 722724965, 381843339 Code(s): O13.9 - GESTATIONAL HTN W/O SIGNIFICANT PROTEINURIA, UNSP TRIMESTER Status: Acute Current Visit: Yes Qualifiers: Trimester: third trimester Qualified Code(s): O13.3 - Gestational [ -induced] hypertension without significant proteinuria, third trimester - My Orders Last 24 Hours: My Active Orders 09/06/18 09:15 Ferrous Sulfate 325 mg PO BIDMEALS - Assessment Assessment:: Agree with above, patient and evaluated independently - Plan Plan:: Discharge home later today. Reviewed perineal care for 3rd degree laceration
[2018-09-07] MEDS: Ferrous Sulfate 325 MG Tab PO SCH (08:04)
[2018-09-07] MEDS: Labetalol 100 MG Tab PO SCH (09:42)
== END 2018-09-07 10:20 | disposition home or self-care (01) | DRG 542 ==
LOC: MW.OB 15:32 → OBSVTOIN 09-05 15:32 → MW.OB 09-05 19:30
PROVIDERS: ADMIT Obstetrics & Gynecology; ATTEND Obstetrics & Gynecology
PROC: 10E0XZZ Delivery of Products of Conception, External Approach (ICD-10-PCS; principal; 2018-09-05)
PROC: 10H07YZ Insertion of Other Device into Products of Conception, Via Natural or Artificial Opening (ICD-10-PCS; principal; 2018-09-05)
PROC: 0U7C7ZZ Dilation of Cervix, Via Natural or Artificial Opening (ICD-10-PCS; principal; 2018-09-05)
PROC: 3E033VJ Introduction of Other Hormone into Peripheral Vein, Percutaneous Approach (ICD-10-PCS; principal; 2018-09-05)
PROC: 3E0P7VZ Introduction of Hormone into Female Reproductive, Via Natural or Artificial Opening (ICD-10-PCS; principal; 2018-09-05)
PROC: 0DQR0ZZ Repair Anal Sphincter, Open Approach (ICD-10-PCS; principal; 2018-09-05)
PROC: 6A550ZT Pheresis of Cord Blood Stem Cells, Single (ICD-10-PCS; principal; 2018-09-05)
PROC: 3E0R3BZ Introduction of Anesthetic Agent into Spinal Canal, Percutaneous Approach (ICD-10-PCS; 2018-09-05)
PROC: 00HU33Z Insertion of Infusion Device into Spinal Canal, Percutaneous Approach (ICD-10-PCS; 2018-09-05)
DX: O13.4 Gestational [pregnancy-induced] hypertension without significant proteinuria, complicating childbirth (principal); O70.20 Third degree perineal laceration during delivery, unspecified; D62 Acute posthemorrhagic anemia; O72.1 Other immediate postpartum hemorrhage; E66.9 Obesity, unspecified; Z3A.39 39 weeks gestation of pregnancy; Z37.0 Single live birth; O90.81 Anemia of the puerperium; O99.214 Obesity complicating childbirth; O99.62 Diseases of the digestive system complicating childbirth; K21.9 Gastro-esophageal reflux disease without esophagitis; Z88.0 Allergy status to penicillin; Z88.1 Allergy status to other antibiotic agents
CPT/HCPCS: 36415; 51702; 59025; 59200; 59409; 80053; 81003; 82803; 84550; 85027; 86850; 86900; 86901; A9270-GY; J0595; J2590; J7030; J7120

== ENCOUNTER 2021-06-19 00:29 | Emergency (ER) | payer BC ==
[2021-06-19] MEDS ORDERED: Sodium Chloride 0.9% 2.5 ML Syringe FLUSH PRN (00:33)
[2021-06-19] MEDS ORDERED: Sodium Chloride 0.9% 10 ML Syringe FLUSH PRN (00:33)
[2021-06-19 01:44] LABS: BLOOD UREA NITROGEN,BUN 18 mg/dL (7.0-18.0); CARBON DIOXIDE,CO2 25.5 mmol/L (21.0-32.0); CHLORIDE,CL 101 mmol/L (98-107); GLUCOSE RANDOM 141 mg/dL (74-106); POTASSIUM,K 3.8 mmol/L (3.5-5.1); SODIUM,NA 133 mmol/L (136-145)
--- NOTE | 2021-06-19 02:14 | EDM.PDOC ---
ED HPI GENERAL MEDICAL PROBLEM - General Chief Complaint: TRACK MANAGER Problem Stated Complaint: MISCARRIAGE, CLOTTING AND VOMITING Time Seen by Provider: 06/19/21 01:16 - History of Present Illness INITIAL COMMENTS - FREE TEXT/NARRATIVE: HISTORY AND PHYSICAL: History of present illness: This is a 30-year-old female who presents ER today secondary to increased vaginal bleeding over the last several hours. Patient reports that she went in on Tuesday secondary to a blighted ovum and she had Cytotec vaginally started by her TRACK MANAGER doctor. She reports that she did not have any significant bleeding so she went back yesterday and her doctor reinserted more Cytotec vaginal medication. She reports that during her visit she started having some bleeding and when she went home she started having increased cramping and bleeding as we ll. Patient presented to the ER today secondary to concern over significant amount of vaginal bleeding and clots coming out. Patient is unable to quantify exactly how many pads she would have gone through today. Patient denies any dizziness or syncope. Patient denies any fevers, shakes, chills, nausea, vomiting, diarrhea. Patient reports that the cramping is significantly improved since she has been here in the ED. Review of systems: As per history of present illness and below otherwise all systems reviewed and negative. Past medical history: As per history of present illness and as reviewed below otherwise noncontributory. Surgical history: As per history of present illness and as reviewed below otherwise noncontributory. Social history: No reported history of drug abuse. Family history: As per history of present illness and as reviewed below otherwise noncontributory. Physical exam: This patient was seen and evaluated during the 2019 SARS-CoV-2 novel coronavirus pandemic period. Community viral transmission is ongoing at time of this encounter and the emergency department is operating under pandemic response procedures. Constitutional: Patient is oriented to person, place, and time. Appears well- developed and well-nourished. No distress. HEENT: Moist mucous membranes Head: Normocephalic and atraumatic Eyes: Right eye exhibits no discharge. Left eye exhibits no discharge. No scleral icterus Neck: Normal range of motion. No tracheal deviation present. Cardiovascular: Normal rate and regular rhythm. Pulmonary: Effort normal, no respiratory distress. Abdominal: No distention Musculoskeletal: Normal range of motion Neurologic: Alert and oriented to person, place and time. Skin: [place], warm and dry. Psychiatric: Normal mood and affect. Behavior is normal. Judgment and thought content normal. Nursing note and vital signs have been reviewed Patient's ER physical exam significant for normal vital signs without tachycardia. Patient's pelvic exam reveals a closed os with a small amount of bleeding from her cervix. Patient reports no abdominal discomfort on external exam but is uncomfortable during my internal pelvic exam. Diagnostics: CBC with a hemoglobin of 11.4. Beta hCG with significant decline for prior beta hCG approximately 1 to 2 weeks ago. Patient reports that she has had an ultrasound by her primary care physician and which revealed a blighted ovum. Therapeutics: [] Assessment and plan: 30-year-old female with vaginal bleeding secondary to induction of miscarriage of a blighted ovum. Patient currently is clinically and hemodynamically stable. Patient's vital signs are within normal limits. Patient's hemoglobin is slightly lower than her baseline however given the amount of bleeding that she has described this is not unexpected. Patient is hemodynamically stable and has been encouraged to return to the ED if her bleeding should worsen or she is to have any new or concerning symptoms such as dizziness, shortness of breath, chest pain or feel like she might pass out. I have discussed with the patient the need to follow-up with her TRACK MANAGER doctor the next 1 to 2 days for reevaluation. Reassessment at the time of disposition demonstrates that the patient is in no acute distress. The patient has remained stable throughout the entire ED visit and is without objective evidence for acute process requiring urgent intervention or hospitalization. The patient is stable for discharge, counseling is provided as documented above, discussed symptomatic treatment and specific conditions for return. I have spoken with the patient/caregiver and discussed todays findings, in addition to providing specific details for the plan of care. Questions are answered and there is agreement with the plan. Definitive disposition and diagnosis as appropriate pending reevaluation and review of above. Lower Abdomen Pain Score (Numeric/FACES): 4 - Related Data Allergies Allergy/AdvReac Type Severity Reaction Status Date / Time amoxicillin Allergy Hives Verified 06/19/21 00:44 Penicillins Allergy Hives Verified 06/19/21 00:44 Past Medical History HEENT History: Reports: None Cardiovascular History: Reports: None Respiratory History: Reports: None Gastrointestinal History: Reports: GERD Genitourinary History: Reports: None TRACK MANAGER History: Reports: Musculoskeletal History: Reports: None Neurological History: Reports: None Psychiatric History: Reports: None Endocrine/Metabolic History: Reports: Obesity/BMI 30+ Hematologic History: Reports: None Immunologic History: Reports: None Oncologic (Cancer) History: Reports: None Dermatologic History: Reports: None - Infectious Disease History Infectious Disease History: Reports: None - Past Surgical History HEENT Surgical History: Reports: Other (See Below) Other HEENT Surgeries/Procedures: wisdom teeth Social & Family History - Family History Family Medical History: No Pertinent Family History - Tobacco Use Tobacco Use Status *Q: Never Tobacco User - Recreational Drug Use Recreational Drug Use: No ED ROS GENERAL - Review of Systems Review Of Systems: See Below ED EXAM, GENERAL - Physical Exam Exam: See Below Course - Vital Signs Last Recorded V/S: Last Vital Signs Temp 97.2 F 06/19/21 02:15 Pulse 102 H 06/19/21 02:15 Resp 18 06/19/21 02:15 BP 127/79 06/19/21 02:15 Pulse Ox 97 06/19/21 02:15 - Orders/Labs/Meds Orders: Active Orders 24 hr Category Date Time Status Sodium Chloride 0.9% [Saline Flush] Med 06/19/21 00:33 Active 10 ml FLUSH ASDIRECTED PRN Sodium Chloride 0.9% [Saline Flush] Med 06/19/21 00:33 Active 2.5 ml FLUSH ASDIRECTED PRN Saline Lock Insert [OM.PC] Stat Oth 06/19/21 00:34 Ordered Medication Orders Sodium Chloride (Sodium Chloride 0.9% 10 Ml Syringe) 10 ml FLUSH ASDIRECTED PRN PRN Reason: Keep Vein Open Sodium Chloride (Sodium Chloride 0.9% 2.5 Ml Syringe) 2.5 ml FLUSH ASDIRECTED PRN PRN Reason: Keep Vein Open Labs: Laboratory Tests 06/19/21 06/19/21 Range/Units 01:00 01:00 WBC 14.67 H (4.0-11.0) K/uL RBC 3.75 L (4.30-5.90) M/uL Hgb 11.4 L (12.0-16.0) g/dL Hct 33.1 L (36.0-46.0) % MCV 88.3 (80.0-98.0) fL MCH 30.4 (27.0-32.0) pg MCHC 34.4 (31.0-37.0) g/dL RDW Std Deviation 42.3 (28.0-62.0) fl RDW Coeff of [place] 13 (11.0-15.0) % Plt Count 226 (150-400) K/uL MPV 8.70 (7.40-12.00) fL Neut % (Auto) 80.5 H (48.0-80.0) % Lymph % (Auto) 13.4 L (16.0-40.0) % [place] % (Auto) 5.8 (0.0-15.0) % Eos % (Auto) 0.2 (0.0-7.0) % Baso % (Auto) 0.1 (0.0-1.5) % Neut # (Auto) 11.8 H (1.4-5.7) K/uL Lymph # (Auto) 2.0 (0.6-2.4) K/uL [place] # (Auto) 0.9 H (0.0-0.8) K/uL Eos # (Auto) 0.0 (0.0-0.7) K/uL Baso # (Auto) 0.0 (0.0-0.1) K/uL Nucleated RBC % 0.0 /100WBC Nucleated RBCs # 0 K/uL Sodium 133 L (136-145) mmol/L Potassium 3.8 (3.5-5.1) mmol/L Chloride 101 (98-107) mmol/L Carbon Dioxide 25.5 (21.0-32.0) mmol/L BUN 18 (7.0-18.0) mg/dL Creatinine 0.8 (0.6-1.0) mg/dL Est Cr Clr Drug Dosing TNP Estimated GFR (MDRD) > 60.0 ml/min Glucose 141 H (74-106) mg/dL Calcium 8.5 (8.5-10.1) mg/dL Total Bilirubin 0.2 (0.2-1.0) mg/dL AST 20 (15-37) IU/L ALT 29 (14-63) IU/L Alkaline Phosphatase 68 (46-116) U/L Total Protein 7.2 (6.4-8.2) g/dL Albumin 3.3 L (3.4-5.0) g/dL Globulin 3.9 (2.6-4.0) g/dL Albumin/Globulin Ratio 0.9 (0.9-1.6) HCG, Quant 6967.0 mIU/mL Meds: Medications Generic Name Dose Route Start Last Admin Trade Name Freq PRN Reason Stop Dose Admin Sodium Chloride 10 ml 06/19/21 00:33 Sodium Chloride 0.9% 10 Ml Syringe FLUSH ASDIRECTED PRN Keep Vein Open Sodium Chloride 2.5 ml 06/19/21 00:33 Sodium Chloride 0.9% 2.5 Ml Syringe FLUSH ASDIRECTED PRN Keep Vein Open Departure - Departure Time of Disposition: 02:22 Disposition: Home, Self-Care 01 Condition: Good Clinical Impression: Complete , Threatened - Discharge Information Instructions: Threatened Miscarriage, Miscarriage, [id number] Referrals: Bebo Olivera MD [Primary Care Provider] - Forms: ED Department Discharge Additional Instructions: You were seen and evaluated in ER today secondary to vaginal bleeding related to the Cytotec vaginal suppositories that you received by your TRACK MANAGER doctor. At this time, your vital signs are all within normal limits and your hemoglobin is stable. Please make an appointment to see your TRACK MANAGER doctor in the next 1 to 2 days to be reevaluated. Please return to the ER if you develop any new or concerning symptoms such as chest pain, shortness of breath, dizziness or feeling like you might pass out. Please return to the ER if you develop any new or concerning symptoms or if you have excessive vaginal bleeding that is concerning. The following information is given to patients seen in the emergency department who are being discharged to home. This information is to outline your options for follow-up care. We provide all patients seen in our emergency department with a follow-up referral. The need for follow-up, as well as the timing and circumstances, are variable depending upon the specifics of your emergency department visit. If you don't have a primary care physician on staff, we will provide you with a referral. We always advise you to contact your personal physician following an emergency department visit to inform them of the circumstance of the visit and for follow-up with them and/or the need for any referrals to a consulting specialist. The emergency department will also refer you to a specialist when appropriate. This referral assures that you have the opportunity for follow-up care with a specialist. All of these measure are taken in an effort to provide you with optimal care, which includes your follow-up. Under all circumstances we always encourage you to contact your private physician who remains a resource for coordinating your care. When calling for follow-up care, please make the office aware that this follow-up is from your recent emergency room visit. If for any reason you are refused follow-up, please contact the [facility] Emergency Department at and asked to speak to the emergency department charge nurse. [facility] - [facility] [address] [place] [id number] [facility] [address] [place] [id number] Sepsis Event Note (ED) - Focused Exam Vital Signs: Vital Signs Temp Pulse Resp BP Pulse Ox 06/19/21 02:15 97.2 F 102 H 18 127/79 97 06/19/21 00:44 97.4 F 98 17 119/88 97 - My Orders Last 24 Hours: My Active Orders 06/19/21 00:33 Sodium Chloride 0.9% [Saline Flush] 10 ml FLUSH ASDIRECTED PRN Sodium Chloride 0.9% [Saline Flush] 2.5 ml FLUSH ASDIRECTED PRN 06/19/21 00:34 Saline Lock Insert [OM.PC] Stat - Assessment/Plan Last 24 Hours: My Active Orders 06/19/21 00:33 Sodium Chloride 0.9% [Saline Flush] 10 ml FLUSH ASDIRECTED PRN Sodium Chloride 0.9% [Saline Flush] 2.5 ml FLUSH ASDIRECTED PRN 06/19/21 00:34 Saline Lock Insert [OM.PC] Stat
== END 2021-06-19 02:30 | disposition home or self-care (01) ==
LOC: MW.ED 00:29
DX: O20.0 Threatened abortion (principal); Z88.0 Allergy status to penicillin; Z3A.00 Weeks of gestation of pregnancy not specified
CPT/HCPCS: 36415; 80053; 84702; 85025; 99284

== ENCOUNTER 2021-08-08 11:19 | Day surgery (SDC) | payer BC ==
[2021-08-08] MEDS ORDERED: Sodium Chloride 0.9% 1,000 ML IV ONE (11:44)
[2021-08-08] MEDS ORDERED: Tranexamic Acid 1,000 MG in Sodium Chloride 0.9% 500 ML IV ONE (11:53)
--- NOTE | 2021-08-08 11:53 | EDM.PDOC ---
ED HPI GENERAL MEDICAL PROBLEM - General Chief Complaint: CARE ATTENDANT Problem Stated Complaint: EXCESSIVE BLEEDING VAGINALLY Time Seen by Provider: 08/08/21 11:22 Source of Information: Reports: Patient History Limitations: Reports: No Limitations - History of Present Illness INITIAL COMMENTS - FREE TEXT/NARRATIVE: 31-year-old female presents with heavy vaginal bleeding. Patient notes that she had a miscarriage in June of last year or roughly 6 weeks ago. This was complicated with heavy bleeding and she was prescribed methotrexate by her CARE ATTENDANT Dr. Sweet. She has been trending her hormone level with Dr. Sweet and it has been downtrending. She was scheduled for outpatient pelvic ultrasound when her hormone level reached 0. She noted that she had her first menstrual period after this incident roughly 1 week ago. Roughly an hour and a half prior to arrival patient began to experience heavy vaginal bleeding and passing large clots. She does feel anxious but denies chest pain or shortness of breath. Denies lightheadedness or feeling like she is about to pass out. - Related Data Allergies Allergy/AdvReac Type Severity Reaction Status Date / Time amoxicillin Allergy Hives Verified 08/08/21 11:29 Penicillins Allergy Hives Verified 08/08/21 11:29 Home Meds: Home Meds Cholecalciferol (Vitamin D3) [D3-2000] 08/08/21 [History] No122/Iron/Folic Acid [ Multi Tablet] 1 each PO 08/08/21 [History] Past Medical History - Past Health History Medical/Surgical History: Denies Medical/Surgical History HEENT History: Reports: None Cardiovascular History: Reports: None Respiratory History: Reports: None Gastrointestinal History: Reports: GERD Genitourinary History: Reports: None CARE ATTENDANT History: Reports: , Spontaneous Musculoskeletal History: Reports: None Neurological History: Reports: None Psychiatric History: Reports: None Endocrine/Metabolic History: Reports: Obesity/BMI 30+ Hematologic History: Reports: None Immunologic History: Reports: None Oncologic (Cancer) History: Reports: None Dermatologic History: Reports: None - Infectious Disease History Infectious Disease History: Reports: None - Past Surgical History HEENT Surgical History: Reports: Other (See Below) Other HEENT Surgeries/Procedures: wisdom teeth Social & Family History - Family History Family Medical History: No Pertinent Family History - Tobacco Use Tobacco Use Status *Q: Never Tobacco User - Caffeine Use Caffeine Use: Reports: Coffee - Recreational Drug Use Recreational Drug Use: No ED ROS GENERAL - Review of Systems Review Of Systems: Comprehensive ROS is negative, except as noted in HPI. ED EXAM, GENERAL - Physical Exam Exam: See Below Exam Limited By: No Limitations General Appearance: Alert, WD/WN, Anxious Ears: Hearing Grossly Normal Throat/Mouth: Normal Voice, No Airway Compromise Head: Atraumatic, Normocephalic Respiratory/Chest: No Respiratory Distress, Lungs Clear, No Accessory Muscle Use, Respiratory Distress Cardiovascular: Normal Peripheral Pulses, Tachycardia GI/Abdominal: Soft, Non-Tender (Female) Exam: Other (normal external exam, speculum exam reveals large amount of bright red blood with large clot in posterior vaginal vault with active bleeding, cervical os feels loose ) Extremities: Normal Inspection Neurological: Alert, Normal Cognition Psychiatric: Normal Affect, Normal Mood, Anxious Skin Exam: Warm, Dry, Intact, Normal Color Course - Vital Signs Last Recorded V/S: Last Vital Signs Temp 97.6 F 08/08/21 11:23 Pulse 87 08/08/21 12:38 Resp 18 08/08/21 11:23 BP 128/93 H 08/08/21 12:38 Pulse Ox 100 08/08/21 12:38 - Orders/Labs/Meds Orders: Active Orders 24 hr Category Date Time Status Saline Lock Insert [OM.PC] Stat Oth 08/08/21 11:44 Ordered Labs: Laboratory Tests 08/08/21 08/08/21 08/08/21 Range/Units 11:48 11:48 11:54 WBC 7.79 (4.0-11.0) K/uL RBC 3.81 L (4.30-5.90) M/uL Hgb 10.6 L (12.0-16.0) g/dL Hct 33.7 L (36.0-46.0) % MCV 88.5 (80.0-98.0) fL MCH 27.8 (27.0-32.0) pg MCHC 31.5 (31.0-37.0) g/dL RDW Std Deviation 44.4 (28.0-62.0) fl RDW Coeff of [place] 14 (11.0-15.0) % Plt Count 325 (150-400) K/uL MPV 9.30 (7.40-12.00) fL Neut % (Auto) 51.6 (48.0-80.0) % Lymph % (Auto) 39.3 (16.0-40.0) % [place] % (Auto) 8.3 (0.0-15.0) % Eos % (Auto) 0.5 (0.0-7.0) % Baso % (Auto) 0.3 (0.0-1.5) % Neut # (Auto) 4.0 (1.4-5.7) K/uL Lymph # (Auto) 3.1 H (0.6-2.4) K/uL [place] # (Auto) 0.7 (0.0-0.8) K/uL Eos # (Auto) 0.0 (0.0-0.7) K/uL Baso # (Auto) 0.0 (0.0-0.1) K/uL Nucleated RBC % 0.0 /100WBC Nucleated RBCs # 0 K/uL Sodium 140 (136-145) mmol/L Potassium 3.8 (3.5-5.1) mmol/L Chloride 102 (98-107) mmol/L Carbon Dioxide 25.5 (21.0-32.0) mmol/L BUN 15 (7.0-18.0) mg/dL Creatinine 0.8 (0.6-1.0) mg/dL Est Cr Clr Drug Dosing 97.13 mL/min Estimated GFR (MDRD) > 60.0 ml/min Glucose 108 H (74-106) mg/dL Calcium 8.8 (8.5-10.1) mg/dL Total Bilirubin 0.3 (0.2-1.0) mg/dL AST 17 (15-37) IU/L ALT 27 (14-63) IU/L Alkaline Phosphatase 64 (46-116) U/L Total Protein 7.6 (6.4-8.2) g/dL Albumin 4.0 (3.4-5.0) g/dL Globulin 3.6 (2.6-4.0) g/dL Albumin/Globulin Ratio 1.1 (0.9-1.6) HCG, Quant 5.0 mIU/mL SARS-CoV-2 RNA (SANIT) NEGATIVE (NEGATIVE) Blood Type Antibody Screen 08/08/21 Range/Units 12:09 WBC (4.0-11.0) K/uL RBC (4.30-5.90) M/uL Hgb (12.0-16.0) g/dL Hct (36.0-46.0) % MCV (80.0-98.0) fL MCH (27.0-32.0) pg MCHC (31.0-37.0) g/dL RDW Std Deviation (28.0-62.0) fl RDW Coeff of [place] (11.0-15.0) % Plt Count (150-400) K/uL MPV (7.40-12.00) fL Neut % (Auto) (48.0-80.0) % Lymph % (Auto) (16.0-40.0) % [place] % (Auto) (0.0-15.0) % Eos % (Auto) (0.0-7.0) % Baso % (Auto) (0.0-1.5) % Neut # (Auto) (1.4-5.7) K/uL Lymph # (Auto) (0.6-2.4) K/uL [place] # (Auto) (0.0-0.8) K/uL Eos # (Auto) (0.0-0.7) K/uL Baso # (Auto) (0.0-0.1) K/uL Nucleated RBC % /100WBC Nucleated RBCs # K/uL Sodium (136-145) mmol/L Potassium (3.5-5.1) mmol/L Chloride (98-107) mmol/L Carbon Dioxide (21.0-32.0) mmol/L BUN (7.0-18.0) mg/dL Creatinine (0.6-1.0) mg/dL Est Cr Clr Drug Dosing mL/min Estimated GFR (MDRD) ml/min Glucose (74-106) mg/dL Calcium (8.5-10.1) mg/dL Total Bilirubin (0.2-1.0) mg/dL AST (15-37) IU/L ALT (14-63) IU/L Alkaline Phosphatase (46-116) U/L Total Protein (6.4-8.2) g/dL Albumin (3.4-5.0) g/dL Globulin (2.6-4.0) g/dL Albumin/Globulin Ratio (0.9-1.6) HCG, Quant mIU/mL SARS-CoV-2 RNA (SANTI) (NEGATIVE) Blood Type O POSITIVE Antibody Screen NEGATIVE Meds: Medications Discontinued Medications Generic Name Dose Route Start Last Admin Trade Name Adwoa PRN Reason Stop Dose Admin Sodium Chloride 1,000 mls @ 999 mls/hr 08/08/21 11:44 08/08/21 11:52 Normal Saline IV 08/08/21 12:44 999 mls/hr .Bolus ONE Administration Tranexamic Acid 1,000 mg/ 510 mls @ 3,060 mls/hr 08/08/21 11:53 08/08/21 12:15 Sodium Chloride IV 08/08/21 11:54 3,060 mls/hr ONETIME ONE Administration - Re-Assessments/Exams Free Text/Narrative Re-Assessment/Exam: 08/08/21 11:45 Patient presents with heavy vaginal bleeding after miscarriage 2 months ago. I did reach out to CARE ATTENDANT on-call Dr. Reeves who recommends 1 g of TXA, routine labs as ordered, pelvic ultrasonography. I will call her with the results of the labs and imaging. Note that although patient's heart rate was 145 on triage on my exam her heart rate was in the high 90s, low 100s. She remains normotensive. 08/08/21 13:35 Patient has been evaluated by Dr. Reeves who recommends admission for D&C procedure. Patient is agreeable with plan. Departure - Departure Time of Disposition: 13:35 Disposition: Refer to Observation Condition: Good Clinical Impression: Retained products of conception - Discharge Information Forms: ED Department Discharge Sepsis Event Note (ED) - Evaluation Sepsis Screening Result: No Definite Risk - Focused Exam Vital Signs: Vital Signs Temp Pulse Resp BP Pulse Ox 08/08/21 12:38 87 128/93 H 100 08/08/21 11:23 97.6 F 145 H 18 148/104 H 100 - My Orders Last 24 Hours: My Active Orders 08/08/21 11:44 Saline Lock Insert [OM.PC] Stat - Assessment/Plan Last 24 Hours: My Active Orders 08/08/21 11:44 Saline Lock Insert [OM.PC] Stat
[2021-08-08 12:32] LABS: BLOOD UREA NITROGEN,BUN 15 mg/dL (7.0-18.0); CARBON DIOXIDE,CO2 25.5 mmol/L (21.0-32.0); CHLORIDE,CL 102 mmol/L (98-107); GLUCOSE RANDOM 108 mg/dL (74-106); POTASSIUM,K 3.8 mmol/L (3.5-5.1); SODIUM,NA 140 mmol/L (136-145)
--- NOTE | 2021-08-08 13:33 | US ---
CLINICAL HISTORY: Heavy vaginal bleeding 8 week blighted ovum 06/2021 No comparison TECHNIQUE: Real time, mckeon scale images were acquired of the pelvis using a transabdominal and transvaginal approach. Color Doppler analysis was performed of the ovaries. FINDINGS: The uterus measures 9.5 x 5.2 x 4.6 centimeters. Thickened heterogeneous endometrium measuring 2.7 centimeters. Endometrioma junction on the right is indistinct. Increased vascularity is along the right aspect of the endometrium. No discrete mass definitively seen in the endometrium. Right ovary appears normal measuring 3.7 x 1.9 x 3.3 centimeters. Normal blood flow to the right ovary. Left ovary measures 3.4 x 4.1 x 2.7 cm. Left ovarian 2.3 by a 2.1 x 2.4 centimeter cyst. Normal blood flow to the left ovary. No adnexal mass or free fluid. IMPRESSION: 1.Thickened endometrium measuring 2.7 centimeters. More focal heterogeneity along the right endometrium without vascularity demonstrated. A discrete mass is not seen. 2. Normal ovaries. No adnexal mass or free fluid Dictated by Leia Barraza MD @ 08/08/2021 1:30:52 PM (Electronically Signed)
[2021-08-08] MEDS ORDERED: Sodium Chloride 0.9% 10 ML Syringe FLUSH PRN (13:42)
[2021-08-08] MEDS ORDERED: ceFAZolin 1 GM in Premix Bag 1 BAG IV ONE (13:42)
[2021-08-08] MEDS ORDERED: Sodium Chloride 0.9% 2.5 ML Syringe FLUSH PRN (13:42)
[2021-08-08] MEDS ORDERED: Sodium Chloride 0.9% 20 ML SDV IV PRN (13:42)
--- NOTE | 2021-08-08 13:49 | PCM.HP.2 ---
H&P History of Present Illness - General Date of Service: 08/08/21 Admit Problem/Dx: Admission Diagnosis/Problem Admission Diagnosis/Problem Retained products of conception Source of Information: Patient History Limitations: Reports: No Limitations - History of Present Illness Initial Comments - Free Text/Narative: 31yo presents with heavy vaginal bleeding for the past few hours. Upon initial presentation to ER, had heavy bleeding and tachycardia. Was given 1g TXA by IV, and bleeding has decreased. Patient denies cramping. 06/04/21: US with 8 week empty gestational sac; hCG 85,099 06/08/21: hCG 54,636 06/15/21: Given cytotec, only light bleeding 06/18/21: Second dose of cytotec 06/29/21: Follow-up appointment; hCG 217 07/14/21: hCG 37 07/28/21: hCG 9 Onset of Symptoms: Reports: Today - Related Data Allergies/Adverse Reactions: Allergies Allergy/AdvReac Type Severity Reaction Status Date / Time amoxicillin Allergy Hives Verified 08/08/21 11:29 Penicillins Allergy Hives Verified 08/08/21 11:29 Home Medications: Home Meds Cholecalciferol (Vitamin D3) [D3-2000] 08/08/21 [History] No122/Iron/Folic Acid [ Multi Tablet] 1 each PO 08/08/21 [History] Past Medical History - Past Health History Medical/Surgical History: Denies Medical/Surgical History HEENT History: Reports: None Cardiovascular History: Reports: None Respiratory History: Reports: None Gastrointestinal History: Reports: GERD Genitourinary History: Reports: None WE[employer]ING [employer] History: Reports: , Spontaneous : 3 Para: 1 Other OB/BYN History: G1: 2018. G2: SAB 12/2020. G3: SAB, current Musculoskeletal History: Reports: None Neurological History: Reports: None Psychiatric History: Reports: None Endocrine/Metabolic History: Reports: Obesity/BMI 30+ Hematologic History: Reports: None Immunologic History: Reports: None Oncologic (Cancer) History: Reports: None Dermatologic History: Reports: None - Infectious Disease History Infectious Disease History: Reports: None - Past Surgical History HEENT Surgical History: Reports: Other (See Below) Other HEENT Surgeries/Procedures: wisdom teeth Social & Family History - Family History Family Medical History: No Pertinent Family History - Tobacco Use Tobacco Use Status *Q: Never Tobacco User - Caffeine Use Caffeine Use: Reports: Coffee - Recreational Drug Use Recreational Drug Use: No H&P Review of Systems - Review of Systems: Review Of Systems: See Below General: Reports: No Symptoms HEENT: Reports: No Symptoms Pulmonary: Reports: No Symptoms Cardiovascular: Reports: No Symptoms Gastrointestinal: Reports: No Symptoms Genitourinary: Reports: Other (heavy vaginal bleeding) Musculoskeletal: Reports: No Symptoms Skin: Reports: No Symptoms Psychiatric: Reports: No Symptoms Neurological: Reports: No Symptoms Hematologic/Lymphatic: Reports: No Symptoms Immunologic: Reports: No Symptoms Exam - Exam Exam: See Below - Vital Signs Vital Signs: Last Vital Signs Temp 36.4 C 08/08/21 11:23 Pulse 87 08/08/21 12:38 Resp 18 08/08/21 11:23 BP 128/93 H 08/08/21 12:38 Pulse Ox 100 08/08/21 12:38 Weight: 79.379 kg - Exam General: Alert, Oriented, 4 Neck: Supple Lungs: Clear to Auscultation, Normal Respiratory Effort Cardiovascular: Regular Rate, Regular Rhythm GI/Abdominal Exam: Soft, Non-Tender, No Distention (Female) Exam: Deferred (performed by ER physician, will perform EUA) Extremities: Non-Tender, No Pedal Edema Skin: Warm, Dry, Intact Neuro Extensive - Mental Status: Alert, Oriented x3, Normal Mood/Affect Psychiatric: Alert, Normal Affect, Normal Mood - Patient Data Lab Results Last 24 hrs: Laboratory Results - last 24 hr 08/08/21 08/08/21 08/08/21 Range/Units 11:48 11:48 11:54 WBC 7.79 (4.0-11.0) K/uL RBC 3.81 L (4.30-5.90) M/uL Hgb 10.6 L (12.0-16.0) g/dL Hct 33.7 L (36.0-46.0) % MCV 88.5 (80.0-98.0) fL MCH 27.8 (27.0-32.0) pg MCHC 31.5 (31.0-37.0) g/dL RDW Std Deviation 44.4 (28.0-62.0) fl RDW Coeff of [place] 14 (11.0-15.0) % Plt Count 325 (150-400) K/uL MPV 9.30 (7.40-12.00) fL Neut % (Auto) 51.6 (48.0-80.0) % Lymph % (Auto) 39.3 (16.0-40.0) % [place] % (Auto) 8.3 (0.0-15.0) % Eos % (Auto) 0.5 (0.0-7.0) % Baso % (Auto) 0.3 (0.0-1.5) % Neut # (Auto) 4.0 (1.4-5.7) K/uL Lymph # (Auto) 3.1 H (0.6-2.4) K/uL [place] # (Auto) 0.7 (0.0-0.8) K/uL Eos # (Auto) 0.0 (0.0-0.7) K/uL Baso # (Auto) 0.0 (0.0-0.1) K/uL Nucleated RBC % 0.0 /100WBC Nucleated RBCs # 0 K/uL Sodium 140 (136-145) mmol/L Potassium 3.8 (3.5-5.1) mmol/L Chloride 102 (98-107) mmol/L Carbon Dioxide 25.5 (21.0-32.0) mmol/L BUN 15 (7.0-18.0) mg/dL Creatinine 0.8 (0.6-1.0) mg/dL Est Cr Clr Drug Dosing 97.13 mL/min Estimated GFR (MDRD) > 60.0 ml/min Glucose 108 H (74-106) mg/dL Calcium 8.8 (8.5-10.1) mg/dL Total Bilirubin 0.3 (0.2-1.0) mg/dL AST 17 (15-37) IU/L ALT 27 (14-63) IU/L Alkaline Phosphatase 64 (46-116) U/L Total Protein 7.6 (6.4-8.2) g/dL Albumin 4.0 (3.4-5.0) g/dL Globulin 3.6 (2.6-4.0) g/dL Albumin/Globulin Ratio 1.1 (0.9-1.6) HCG, Quant 5.0 mIU/mL SARS-CoV-2 RNA (SANTI) NEGATIVE (NEGATIVE) Blood Type Antibody Screen 08/08/21 Range/Units 12:09 WBC (4.0-11.0) K/uL RBC (4.30-5.90) M/uL Hgb (12.0-16.0) g/dL Hct (36.0-46.0) % MCV (80.0-98.0) fL MCH (27.0-32.0) pg MCHC (31.0-37.0) g/dL RDW Std Deviation (28.0-62.0) fl RDW Coeff of [place] (11.0-15.0) % Plt Count (150-400) K/uL MPV (7.40-12.00) fL Neut % (Auto) (48.0-80.0) % Lymph % (Auto) (16.0-40.0) % [place] % (Auto) (0.0-15.0) % Eos % (Auto) (0.0-7.0) % Baso % (Auto) (0.0-1.5) % Neut # (Auto) (1.4-5.7) K/uL Lymph # (Auto) (0.6-2.4) K/uL [place] # (Auto) (0.0-0.8) K/uL Eos # (Auto) (0.0-0.7) K/uL Baso # (Auto) (0.0-0.1) K/uL Nucleated RBC % /100WBC Nucleated RBCs # K/uL Sodium (136-145) mmol/L Potassium (3.5-5.1) mmol/L Chloride (98-107) mmol/L Carbon Dioxide (21.0-32.0) mmol/L BUN (7.0-18.0) mg/dL Creatinine (0.6-1.0) mg/dL Est Cr Clr Drug Dosing mL/min Estimated GFR (MDRD) ml/min Glucose (74-106) mg/dL Calcium (8.5-10.1) mg/dL Total Bilirubin (0.2-1.0) mg/dL AST (15-37) IU/L ALT (14-63) IU/L Alkaline Phosphatase (46-116) U/L Total Protein (6.4-8.2) g/dL Albumin (3.4-5.0) g/dL Globulin (2.6-4.0) g/dL Albumin/Globulin Ratio (0.9-1.6) HCG, Quant mIU/mL SARS-CoV-2 RNA (SANTI) (NEGATIVE) Blood Type O POSITIVE Antibody Screen NEGATIVE Result Diagrams: 08/08/21 11:48 08/08/21 11:48 Sepsis Event Note - Evaluation Sepsis Screening Result: No Definite Risk - Focused Exam Vital Signs: Vital Signs Temp Pulse Resp BP Pulse Ox 08/08/21 12:38 87 128/93 H 100 08/08/21 11:23 36.4 C 145 H 18 148/104 H 100 *Q Meaningful Use (ADM) - VTE *Q VTE Mechanical Contraindications *Q: At Risk for Falls VTE Pharmacological Contraindications *Q: Active Hemorrhage VTE Anticoagulation Contraindications: Med/TX Not Indicated/Need - VTE Risk Assess *Q Each Risk Factor Represents 1 Point: or , Less than 1 Month Total Score 1 Point Risk Factors: 1 Each Risk Factor Represents 2 Points: None Total Score 2 Point Risk Factors: 0 Each Risk Factor Represents 3 Points: None Total Score 3 Point Risk Factors: 0 Each Risk Factor Represents 5 Points: None Total Score 5 Point Risk Factors: 0 Venous Thromboembolism Risk Factor Score *Q: 1 - Stroke *Q Aspirin Contraindications Stroke *Q: Other (Use Special Inst) (not indicated) Anticoagulation Contraindications Stroke *Q: Med/TX Not Indicated/Need Antithrombotic Contraindications Stroke *Q: Med/TX Not Indicated/Need Thrombolytic/Fibrinolytic Contraindications Stroke *Q: Med/TX Not Indicated/Need Statin Contraindications Stroke *Q: Med/TX Not Indicated/Need Rehabilitation Assessment Contraindication *Q: Med/tx not indicated/need - AMI *Q Aspirin Contraindications AMI *Q: Med/TX Not Indicated/Need Thrombolytic/Fibrinolytic Contraindications IV (AMI) *Q: Med/tx not i ndicated/need Statin Contraindications AMI *Q: Med/TX Not Indicated/Need - Problem List (1) Incomplete SNOMED Code(s): 733685431 ICD Code: O03.4 - INCOMPLETE SPONTANEOUS WITHOUT COMPLICATION Status: Acute Current Visit: Yes Problem List Initiated/Reviewed/Updated: Yes Orders Last 24hrs: Active Orders 24 hr Category Date Time Status Patient Status [ADT] Routine ADT 08/08/21 13:37 Active Patient Status [ADT] Routine ADT 08/08/21 13:42 Ordered Antiembolic Devices [RC] PER UNIT ROUTINE Care 08/08/21 13:42 Ordered Procedure Prep Instructions [RC] PER UNIT ROUTINE Care 08/08/21 13:42 Ordered Urinary Catheter Assessment [RC] ASDIRECTED Care 08/08/21 13:42 Ordered Verify Patient Consent Obtain [RC] PER UNIT ROUTINE Care 08/08/21 13:42 Ord ered Vital Signs [RC] PER UNIT ROUTINE Care 08/08/21 13:42 Ordered Nothing per Oral Now Diet [DIET] Diet 08/08/21 Lunch Ordered Sodium Chloride 0.9% [Normal Saline] Med 08/08/21 13:42 Ordered 10 ml IV ASDIRECTED PRN Sodium Chloride 0.9% [Saline Flush] Med 08/08/21 13:42 Ordered 10 ml FLUSH ASDIRECTED PRN Sodium Chloride 0.9% [Saline Flush] Med 08/08/21 13:42 Ordered 2.5 ml FLUSH ASDIRECTED PRN ceFAZolin [Ancef] 1 gm Med 08/08/21 13:42 Ordered Premix Bag 1 bag IV ONETIME Peripheral IV Insertion Adult [OM.PC] Urgent Oth 08/08/21 13:42 Ordered Saline Lock Insert [OM.PC] Stat Oth 08/08/21 11:44 Ordered Sequential Compression Device [OM.PC] Per Unit Routine Oth 08/08/21 13:42 Ordered Resuscitation Status Routine Resus Stat 08/08/21 13:42 Ordered Assessment/Plan Comment:: 31yo with incomplete /retained products of conception. I reviewed the US images, area of increased doppler flow in endometrium, which is thick and heterogeneous. Retained products/incomplete consistent with continued presence of hCG in serum. I discussed options for treatment with patient, including expectant management (which she has been undertaking without complete resolution), medical management (which she did twice), and surgical management. Discussed surgical management best option given acute heavy bleeding and retained products. If this continues to be prolonged, she is at risk of septic . She agreed that surgical management was the best option. Plan for suction dilation & curettage. Reviewed risks of surgery, including but not limited to, infection, bleeding with possible need for medication/transfusion, uterine perforation with possible need for additional surgery, injury to surrounding organs/vessels/nerves, adhesions within the uterus with potential decreased fertility, and anesthesia complications. She voiced understanding and desired to proceed. All questions answered. - Mortality Measure Prognosis:: Good
[2021-08-08] MEDS ORDERED: Midazolam 1 MG/ML 2 ML SDV ONE (14:07)
[2021-08-08] MEDS ORDERED: Propofol 200 MG/20 ML SDV ONE (14:07)
[2021-08-08] MEDS ORDERED: fentaNYL 100 MCG/2 ML SDV ONE (14:07)
[2021-08-08] MEDS ORDERED: Misoprostol 200 MCG Tab ONE (14:11)
[2021-08-08] MEDS ORDERED: Methylergonovine 0.2 MG/1 ML Amp ONE (14:11)
--- NOTE | 2021-08-08 14:11 | PCM.PREANE ---
Preanesthetic Assessment - Anesthesia/Transfusion/Family Hx Anesthesia History: Prior Anesthesia Without Reaction Transfusion History: No Prior Transfusion(s) - Review of Systems General: No Symptoms Pulmonary: No Symptoms Cardiovascular: No Symptoms Gastrointestinal: No Symptoms Neurological: No Symptoms Other: Reports: None - Physical Assessment NPO Status Date: 08/08/21 NPO Status Time: 08:00 Vital Signs: Last Vital Signs Temp 36.4 C 08/08/21 11:23 Pulse 87 08/08/21 12:38 Resp 18 08/08/21 11:23 BP 128/93 H 08/08/21 12:38 Pulse Ox 100 08/08/21 12:38 Height: 5 ft 6 in Weight: 79.379 kg ASA Class: 2E Mental Status: Alert & Oriented x3 Dentition: Reports: Normal Dentition Thyro-Mental Finger Breadths: 3 Mouth Opening Finger Breadths: 3 ROM/Head Extension: Full Lungs: Clear to Auscultation, Normal Respiratory Effort Cardiovascular: Regular Rate, Regular Rhythm - Lab Values: Laboratory Last Values WBC 7.79 K/uL (4.0-11.0) 08/08/21 11:48 RBC 3.81 M/uL (4.30-5.90) L 08/08/21 11:48 Hgb 10.6 g/dL (12.0-16.0) L 08/08/21 11:48 Hct 33.7 % (36.0-46.0) L 08/08/21 11:48 MCV 88.5 fL (80.0-98.0) 08/08/21 11:48 MCH 27.8 pg (27.0-32.0) 08/08/21 11:48 MCHC 31.5 g/dL (31.0-37.0) 08/08/21 11:48 RDW Std Deviation 44.4 fl (28.0-62.0) 08/08/21 11:48 RDW Coeff of [place] 14 % (11.0-15.0) 08/08/21 11:48 Plt Count 325 K/uL (150-400) 08/08/21 11:48 MPV 9.30 fL (7.40-12.00) 08/08/21 11:48 Neut % (Auto) 51.6 % (48.0-80.0) 08/08/21 11:48 Lymph % (Auto) 39.3 % (16.0-40.0) 08/08/21 11:48 [place] % (Auto) 8.3 % (0.0-15.0) 08/08/21 11:48 Eos % (Auto) 0.5 % (0.0-7.0) 08/08/21 11:48 Baso % (Auto) 0.3 % (0.0-1.5) 08/08/21 11:48 Neut # (Auto) 4.0 K/uL (1.4-5.7) 08/08/21 11:48 Lymph # (Auto) 3.1 K/uL (0.6-2.4) H 08/08/21 11:48 [place] # (Auto) 0.7 K/uL (0.0-0.8) 08/08/21 11:48 Eos # (Auto) 0.0 K/uL (0.0-0.7) 08/08/21 11:48 Baso # (Auto) 0.0 K/uL (0.0-0.1) 08/08/21 11:48 Nucleated RBC % 0.0 /100WBC 08/08/21 11:48 Nucleated RBCs # 0 K/uL 08/08/21 11:48 Sodium 140 mmol/L (136-145) 08/08/21 11:48 Potassium 3.8 mmol/L (3.5-5.1) 08/08/21 11:48 Chloride 102 mmol/L (98-107) 08/08/21 11:48 Carbon Dioxide 25.5 mmol/L (21.0-32.0) 08/08/21 11:48 BUN 15 mg/dL (7.0-18.0) 08/08/21 11:48 Creatinine 0.8 mg/dL (0.6-1.0) 08/08/21 11:48 Est Cr Clr Drug Dosing 97.13 mL/min 08/08/21 11:48 Estimated GFR (MDRD) > 60.0 ml/min 08/08/21 11:48 Glucose 108 mg/dL (74-106) H 08/08/21 11:48 Calcium 8.8 mg/dL (8.5-10.1) 08/08/21 11:48 Total Bilirubin 0.3 mg/dL (0.2-1.0) 08/08/21 11:48 AST 17 IU/L (15-37) 08/08/21 11:48 ALT 27 IU/L (14-63) 08/08/21 11:48 Alkaline Phosphatase 64 U/L (46-116) 08/08/21 11:48 Total Protein 7.6 g/dL (6.4-8.2) 08/08/21 11:48 Albumin 4.0 g/dL (3.4-5.0) 08/08/21 11:48 Globulin 3.6 g/dL (2.6-4.0) 08/08/21 11:48 Albumin/Globulin Ratio 1.1 (0.9-1.6) 08/08/21 11:48 HCG, Quant 5.0 mIU/mL 08/08/21 11:48 SARS-CoV-2 RNA (SANTI) NEGATIVE (NEGATIVE) 08/08/21 11:54 Blood Type O POSITIVE 08/08/21 12:09 Antibody Screen NEGATIVE 08/08/21 12:09 - Allergies Allergies/Adverse Reactions: Allergies Allergy/AdvReac Type Severity Reaction Status Date / Time amoxicillin Allergy Hives Verified 08/08/21 11:29 Penicillins Allergy Hives Verified 08/08/21 11:29 - Acknowledgements Anesthesia Type Planned: General Anesthesia Pt an Appropriate Candidate for the Planned Anesthesia: Yes Alternatives and Risks of Anesthesia Discussed w Pt/Guardian: Yes Pt/Guardian Understands and Agrees with Anesthesia Plan: Yes PreAnesthesia Questionnaire - Past Health History Medical/Surgical History: Denies Medical/Surgical History HEENT History: Reports: None Cardiovascular History: Reports: None Respiratory History: Reports: None Gastrointestinal History: Reports: GERD Genitourinary History: Reports: None 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 G2: SAB 12/2020. G3: SAB, current Musculoskeletal History: Reports: None Neurological History: Reports: None Psychiatric History: Reports: None Endocrine/Metabolic History: Reports: Obesity/BMI 30+ Hematologic History: Reports: None Immunologic History: Reports: None Oncologic (Cancer) History: Reports: None Dermatologic History: Reports: None - Infectious Disease History Infectious Disease History: Reports: None - Past Surgical History HEENT Surgical History: Reports: Other (See Below) Other HEENT Surgeries/Procedures: wisdom teeth - SUBSTANCE USE Tobacco Use Status *Q: Never Tobacco User Recreational Drug Use History: No - HOME MEDS Home Medications: Home Meds Cholecalciferol (Vitamin D3) [D3-2000] 08/08/21 [History] No122/Iron/Folic Acid [ Multi Tablet] 1 each PO 08/08/21 [History] - CURRENT (IN HOUSE) MEDS Current Meds: Current Medications Cefazolin Sodium/Dextrose 1 gm (/ Premix) 50 mls @ 100 mls/hr IV ONETIME ONE Stop: 08/08/21 14:11 Last Admin: 08/08/21 14:06 Dose: 100 mls/hr Documented by: Sodium Chloride (Sodium Chloride 0.9% 10 Ml Syringe) 10 ml FLUSH ASDIRECTED PRN PRN Reason: Keep Vein Open Sodium Chloride (Sodium Chloride 0.9% 2.5 Ml Syringe) 2.5 ml FLUSH ASDIRECTED PRN PRN Reason: Keep Vein Open Sodium Chloride (Sodium Chloride 0.9% 20 Ml Sdv) 10 ml IV ASDIRECTED PRN PRN Reason: IV Use Discontinued Medications Fentanyl (Fentanyl 100 Mcg/2 Ml Sdv) Confirm Administered Dose 100 mcg .ROUTE .STK-MED ONE Stop: 08/08/21 14:08 Sodium Chloride (Normal Saline) 1,000 mls @ 999 mls/hr IV .Bolus ONE Stop: 08/08/21 12:44 Last Admin: 08/08/21 11:52 Dose: 999 mls/hr Documented by: Tranexamic Acid 1,000 mg/ (Sodium Chloride) 510 mls @ 3,060 mls/hr IV ONETIME ONE Stop: 08/08/21 11:54 Last Admin: 08/08/21 12:15 Dose: 3,060 mls/hr Documented by: Midazolam HCl (Midazolam 1 Mg/Ml 2 Ml Sdv) Confirm Administered Dose 2 mg .ROUTE .STK-MED ONE Stop: 08/08/21 14:08 Propofol (Propofol 200 Mg/20 Ml Sdv) Confirm Administered Dose 200 mg .ROUTE .STK-MED ONE Stop: 08/08/21 14:08
[2021-08-08] MEDS ORDERED: Esmolol 100 MG/10 ML SDV ONE (14:29)
[2021-08-08] MEDS ORDERED: Rocuronium Bromide 50 MG/5 ML Syringe ONE (14:29)
[2021-08-08] MEDS ORDERED: Dexamethasone 4 MG/ML 5 ML MDV ONE (14:44)
[2021-08-08] MEDS ORDERED: Ondansetron 4 MG/2 ML SDV ONE (14:47)
[2021-08-08] MEDS ORDERED: Ketorolac 30 MG/ML SDV ONE (14:47)
[2021-08-08] MEDS ORDERED: Morphine 4 MG/ML VIAL IV PRN (15:05)
[2021-08-08] MEDS ORDERED: Morphine 2 MG/ML SYRINGE IV PRN (15:08)
--- NOTE | 2021-08-08 15:08 | PCM.OPNOTE ---
- General Post-Op/Procedure Note Date of Surgery/Procedure: 08/08/21 Operative Procedure(s): Suction dilation & curettage Findings: Uterus sound to 9cm Moderate amount of products of conception Pre Op Diagnosis: 31yo with incomplete /retained products of conception Post-Op Diagnosis: Same Anesthesia Technique: General ET Tube Primary Surgeon: Sydnie Reeves Anesthesia Provider: Armaan Mejía Pathology: Products of conception Fluid Replacement, Intraop: 700 EBL in mLs: 50 Complications: None Condition: Stable Free Text/Narrative:: 1g Ancef IV given for prophylaxis
[2021-08-08] MEDS ORDERED: Albuterol 0.083% 2.5 MG/3 ML Neb Soln NEB PRN (15:23)
[2021-08-08] MEDS ORDERED: Metoclopramide 10 MG/2 ML SDV IVPUSH PRN (15:23)
[2021-08-08] MEDS ORDERED: Naloxone 0.4 MG/ML SDV IVPUSH PRN (15:23)
[2021-08-08] MEDS ORDERED: Morphine 4 MG/ML VIAL IVPUSH PRN (15:23)
[2021-08-08] MEDS ORDERED: fentaNYL 100 MCG/2 ML SDV IVPUSH PRN (15:23)
[2021-08-08] MEDS ORDERED: HYDROmorphone 1 MG/ML Syringe IVPUSH PRN (15:23)
[2021-08-08] MEDS ORDERED: Ondansetron 4 MG/2 ML SDV IVPUSH PRN (15:23)
--- NOTE | 2021-08-08 15:28 | PCM.POSTAN ---
POST ANESTHESIA ASSESSMENT - MENTAL STATUS Mental Status: Alert, Oriented - VITAL SIGNS Vital Signs: Last Vital Signs Temp 36.5 C 08/08/21 15:11 Pulse 78 08/08/21 15:24 Resp 15 08/08/21 15:24 BP 110/68 08/08/21 15:24 Pulse Ox 99 08/08/21 15:24 - RESPIRATORY Respiratory Status: Respiratory Rate WNL, Airway Patent, O2 Saturation Stable - CARDIOVASCULAR CV Status: Pulse Rate WNL, Blood Pressure Stable - GASTROINTESTINAL GI Status: No Symptoms - POST OP HYDRATION Hydration Status: Adequate & Stable
--- NOTE | 2021-08-08 15:36 | PCM48HPAN ---
Post Anesthesia Note - EVALUATION WITHIN 48HRS OF ANESTHETIC Vital Signs in Normal Range: Yes Patient Participated in Evaluation: Yes Respiratory Function Stable: Yes Airway Patent: Yes Cardiovascular Function Stable: Yes Hydration Status Stable: Yes Pain Control Satisfactory: Yes Nausea and Vomiting Control Satisfactory: Yes Mental Status Recovered: Yes Vital Signs: Last Vital Signs Temp 36.5 C 08/08/21 15:11 Pulse 74 08/08/21 15:32 Resp 12 08/08/21 15:32 BP 98/59 L 08/08/21 15:32 Pulse Ox 100 08/08/21 15:32
--- NOTE | 2021-08-08 17:43 | OR ---
SURGEON: Sydnie Reeves MD DATE OF PROCEDURE: 08/08/2021 PREOPERATIVE DIAGNOSES: 1. 31-year-old, G3, P1-0-2-1, with incomplete /retained products of 8- week blighted ovum. 2. Heavy vaginal bleeding. 3. Rh positive. POSTOPERATIVE DIAGNOSES: 1. 31-year-old, G3, P1-0-2-1, with incomplete /retained products of 8- week blighted ovum. 2. Heavy vaginal bleeding. 3. Rh positive. PROCEDURE: Suction dilation and curettage. PRIMARY SURGEON: Sydnie Reeves MD ANESTHESIA: General endotracheal by Armaan Mejía CRNA. COMPLICATIONS: None. ESTIMATED BLOOD LOSS: 50 mL. FLUIDS: 700 mL LR. URINE OUTPUT: Bladder drained prior to procedure. SPECIMEN: Products of conception. ANTIBIOTIC PROPHYLAXIS: 1 g of Ancef IV. FINDINGS: A 9-week size anteverted uterus and moderate amounts of products of conception. INDICATIONS: This is a 31-year-old G3, P1-0-2-1, who had a blighted ovum with subsequent passage of products of conception after two doses of Cytotec in June. Her vaginal bleeding had resolved and her hCG levels were trending downward. On the day of procedure, the patient reported 1-1/2 hours of excessively heavy vaginal bleeding soaking two pads. She presented to the ER where heavy vaginal bleeding was confirmed. I discussed the options of expectant, medical, surgical management with the patient and she desired definitive surgical management due to the risk of continued expectant management. The risks and benefits of the procedure were reviewed with the patient. PROCEDURE IN DETAIL: The patient was taken to operating room where general anesthesia was obtained without difficulty. She was placed in dorsal lithotomy position with legs in Yellofins stirrups. Exam under anesthesia revealed a 9-week size anteverted uterus with the cervix 1 cm dilated. The patient was prepared and draped in the normal sterile fashion. A Graves speculum was inserted into the vagina. An Allis clamp was used to grasp the anterior lip of the cervix. The uterus sounded to 9 cm. The cervix was dilated with Hegar dilators to a size 7. A 7 mm suction curette was advanced to the uterine fundus. The suction was then started. The products of conception were evacuated with the curette rotating on the outward movement. Gentle sharp curettage was then performed with a medium curette. The suction curette was then reintroduced to clear the uterus. The tenaculum was removed from the cervix and good hemostasis was noted. The patient tolerated procedure well. All sponge and instrument counts were correct. The patient was awakened and taken to recovery room in stable condition. [id number] / MODL /[id number] MTDD
== END 2021-08-08 17:11 | disposition home or self-care (01) ==
LOC: MW.ED 11:19 → MW.SDS 13:53 → MW.MS 15:51 → MW.SDS 17:11
PROVIDERS: ATTEND Obstetrics & Gynecology
DX: O02.0 Blighted ovum and nonhydatidiform mole (principal); O03.4 Incomplete spontaneous abortion without complication; E66.9 Obesity, unspecified; Z88.1 Allergy status to other antibiotic agents; Z88.0 Allergy status to penicillin; Z79.899 Other long term (current) drug therapy; Z68.28 Body mass index [BMI] 28.0-28.9, adult
CPT/HCPCS: 36415; 59812; 76856; 80053; 84702; 85025; 86850; 86900; 86901; 87635; 96365; 96375; 99285; J0131; J0330; J0690; J1100; J1885; J2250; J2704; J3490; J7030; J7040; 01965; A9270-GY; J2210; J2405; J3010; U0002